=== PATIENT | female | born 1985 | race Caucasian/White ===

== ENCOUNTER 2020-10-25 10:04 | Emergency (ER) | payer OTHER, SELFPAY ==
--- NOTE | ~2020-10-25 | XR_ITS ---
EXAMINATION: XR HIP, RIGHT CLINICAL INFORMATION: Right hip pain COMPARISON: None TECHNIQUE: Two views of the right hip. FINDINGS: No fracture, dislocation, destructive process. Bony mineralization appears normal. No periostitis. No joint narrowing or erosive change. IUD is seen overlying central pelvis. Visualized pubis and right SI joint are unremarkable. XR/XR hip RT min 2V IMPRESSION: Normal right hip.
[2020-10-25 10:21] VITALS: BP 223/123; PULSE 106; RESP 18; TEMP 37.1; O2SAT 97; BMI 34.0
[2020-10-25 10:56] VITALS: BP 202/121; BP 229/118; PULSE 107; RESP 20; O2SAT 99
--- NOTE | 2020-10-25 10:59 | PC.NURSE ---
pt alert and oriented, skin pwd, respirations even and unlabored. pt ambulated in to the ed. pt reports on mother's day pt injured her right leg, since then having lots of pain on her right outer foot and most pain in the right outer thigh area, having difficulty with ambulation due to pain and sitting, reports feeling like her leg/muscle is being pulled. pt is found to very hypertensive with no hx of hypertension, denies dizziness/lightheadedness/vision changes/headache.
--- NOTE | 2020-10-25 11:45 | ED.LOWEXIN ---
HPI - Extremity Injury (Lower) General Chief Complaint: Extremity Injury, Lower Stated Complaint: leg pain Time Seen by Provider: 10/25/20 11:23 Source: patient Mode of arrival: ambulatory Limitations: no limitations History of Present Illness HPI Narrative: 35 yo female otherwise healthy patient here with R hip pain and thigh pain after working on a fence and feeling in a tear in R IT band feeling, has not had it checked out at times now feels her R side of the foot is tingling complaint: hip injury and thigh injury Onset (ago): week(s) (September 24) Injury: Right: hip and thigh Place: home Severity: moderate Relieving factors: nothing Exacerbating factors: movement and palpation Context: other (unsure) Associated symptoms: snap/pop sensation and tingling Other symptoms: none Related Data Previous Rx's Medication Instructions Recorded cyclobenzaprine 10 mg PO TID PRN #14 tab 10/25/20 ibuprofen 600 mg PO Q6H PRN #30 tab 10/25/20 lidocaine 1 patch TOPICAL DAILY PRN #10 ea 10/25/20 prednisone 40 mg PO DAILY 3 Days #6 tab 10/25/20 Allergies Allergy/AdvReac Type Severity Reaction Status Date / Time oxycodone [From PERCOCET] Allergy Unknown HIVES Unverified 02/03/20 18:28 SWELLING Review of Systems Review of Systems: Constitutional : No Fever, No Chills ENT/Mouth : No Ear Pain, No Hoarseness, No sore throat Cardiovascular : No Chest Pain, No SOB Respiratory : No Cough, No Dyspnea Gastrointestinal : No Nausea, No Vomiting Genitourinary : No Dysuria, No Hematuria Musculoskeletal : positive joint pain, pos Myalgias Skin : No Skin lacerations, No rash Neuro : No Weakness, No Numbness Psych : No Anxiety/Panic, No Depression PMFSH Past Medical History Attestation statement: The following information was validated with the patient. Medical History No active medical problems Social History Social History Patient Tobacco Use Status: Current everyday Tobacco user Use of substances other than those prescribed or required for medical reasons: No Advance Directives: No Advance Directives Information Provided: Yes Patient : No Physical Exam Vital Signs: Vital Signs: Last Vital Signs Temp 98.7 F 10/25/20 10:21 Pulse 107 H 10/25/20 10:56 Resp 20 10/25/20 10:56 BP 202/121 H 10/25/20 10:56 Pulse Ox 99 10/25/20 10:56 Body Mass Index 34.0 Appearance: Alert. Oriented X3. No acute distress. Eyes: Pupils equal, round and reactive to light. ENT: Pharynx normal. Neck: Normal inspection. Neck supple. CVS: Normal heart rate and rhythm. Pulses normal. Respiratory: No respiratory distress. Breath sounds normal. Abdomen: Soft and nontender. Skin: Skin warm and dry. Normal skin color. Normal skin turgor. Extremities: No lower extremity edema. No calf ttp R thigh ttp along IT band, distal NV intact, 2+ DP pulse, pain with ROM of R hip Neuro: Oriented X 3. No motor deficit. No sensory deficit. MDM - Extremity Injury (Lower) MDM Narrative Medical decision making narrative: 35 yo female here with R hip and thigh strain after trauma at this time will need xray of hip for any signs of occult fracture she is NV intact could be IT band tear vs impingement syndrome if xrays negative will refer to PCP for PT/MRI, HTN in ED states this happens when she has gone to doctor offices in the past Discharge Plan Discharge Clinical Impression: Hip strain Patient Disposition: Home, Self-Care Instructions: Hip Sprain (ED) Additional Instructions: return to ED for any worsening symptoms or concerns FINDINGS: No fracture, dislocation, destructive process. Bony mineralization appears normal. No periostitis. No joint narrowing or erosive change. IUD is seen overlying central pelvis. Visualized pubis and right SI joint are unremarkable. XR/XR hip RT min 2V IMPRESSION: Normal right hip. Prescriptions: New cyclobenzaprine 10 mg tablet 10 mg PO TID PRN (Reason: muscle spasm) Qty: 14 RF: 0 lidocaine 4 % adhesive patch,medicated 1 patch topical DAILY PRN (Reason: pain) Qty: 10 RF: 0 ibuprofen 600 mg tablet 600 mg PO Q6H PRN (Reason: pain) Qty: 30 RF: 0 prednisone 20 mg tablet 40 mg PO DAILY 3 Days Qty: 6 RF: 0 Referrals: Junito Mitchell DO, MD [Primary Care Provider] - 2 days (referral to physical therapy) Stand Alone Forms: Work/School Release
[2020-10-25 12:16] VITALS: BP 205/115; PULSE 97; RESP 19; TEMP 36.6; O2SAT 98
[2020-10-25 13:02] VITALS: BP 189/107
== END 2020-10-25 13:03 | disposition home or self-care (01) ==
PROVIDERS: Emergency Provider Emergency Medicine; PCP Internal Medicine
DX: S76.011A Strain of muscle, fascia and tendon of right hip, initial encounter (principal); X50.1XXA Overexertion from prolonged static or awkward postures, initial encounter; Y93.H3 Activity, building and construction; Y92.017 Garden or yard in single-family (private) house as the place of occurrence of the external cause; Y99.9 Unspecified external cause status; F17.210 Nicotine dependence, cigarettes, uncomplicated
CPT/HCPCS: 73502; 99283; 99284

== ENCOUNTER → 2021-01-30 08:36 | Outpatient (BNVA) | payer OTHER, SELFPAY | PROVIDERS: Visit Provider Advanced Practice Midwife ==

== ENCOUNTER → 2021-08-23 08:33 | Outpatient (BNVA) | payer OTHER, SELFPAY | PROVIDERS: Visit Provider Advanced Practice Midwife | DX: Z13.89 Encounter for screening for other disorder (principal) ==

== ENCOUNTER 2021-08-27 13:59 | Outpatient (REF) | payer OTHER, SELFPAY ==
[2021-08-28 05:54] LABS: CT PCR NOT DETECTED (Not Detect.); NG PCR NOT DETECTED (Not Detect.)
[2021-08-28 15:28] LABS: BV Int Neg Control Negative (Negative); BV Int Pos Control Positive (Positive)
[2021-08-29 19:21] LABS: HPV mRNA E6/E7 rflx Not Detected (Not Detected)
== END 2021-08-27 14:00 | disposition home or self-care (01) ==
LOC: HO.LAB 13:59
PROVIDERS: Visit Provider Advanced Practice Midwife
DX: Z01.411 Encounter for gynecological examination (general) (routine) with abnormal findings (principal); Z11.51 Encounter for screening for human papillomavirus (HPV); T83.32XA Displacement of intrauterine contraceptive device, initial encounter
CPT/HCPCS: 87480; 87491; 87510; 87591; 87624; 87660; 88142

== ENCOUNTER 2021-09-14 12:57 | Outpatient (REF) | payer OTHER, SELFPAY ==
--- NOTE | ~2021-09-14 | US_ITS ---
EXAMINATION: US PELVIS CLINICAL INFORMATION: Check IUD. Mesenteric stranding. COMPARISON: 02/03/2018 TECHNIQUE: Ultrasound of the pelvis is performed using both transabdominal and transvaginal transducers along with Doppler. Transvaginal imaging is performed due to inadequate visualization transabdominally. FINDINGS: Uterus: The uterus is anteverted and measures 9.3 x 5.6 x 6.3 cm. Endometrial signature not seen. IUD present within the endometrial canal, and while somewhat difficult to see due to the uterine position, appears to be appropriately positioned. The uterus is smooth in contour and has normal myometrial echogenicity. There are 2 uterine fibroids, one on this measuring up to 1.8 cm. Poorly delineated possibly uterine fibroid within the anterior uterine corpus measuring up to 3.5 cm. Adnexa: Both ovaries are visualized. There is normal color flow to the adnexa. There is no ovarian torsion. There is no pelvic ascites or fluid collection. Right ovary is splayed around a simple cyst. The cyst measures 5.2 x 4.9 x 4.5 cm there are no suspicious features. Left ovary measures 2.9 x 1.7 x 4.5 cm. US/US pelvic and transvaginal IMPRESSION: * IUD appears appropriately positioned within the endometrial cavity. * Uterine fundal fibroid measuring 1.8 cm. * Possible fibroid within the anterior uterus measuring 3.5 cm.
== END 2021-09-14 12:58 | disposition home or self-care (01) ==
LOC: HO.HMGCX 12:57
PROVIDERS: Visit Provider Advanced Practice Midwife
DX: Z01.419 Encounter for gynecological examination (general) (routine) without abnormal findings (principal); T83.32XA Displacement of intrauterine contraceptive device, initial encounter; Z20.2 Contact with and (suspected) exposure to infections with a predominantly sexual mode of transmission; Z53.8 Procedure and treatment not carried out for other reasons
CPT/HCPCS: 76830; 76856

== ENCOUNTER 2021-09-24 10:16 | Outpatient (REF) | payer OTHER, SELFPAY ==
[2021-09-24 12:28] LABS: Hemoglobin 13.2 g/dl (12.0-16.0); Mean Corpuscular Hemoglobin 29.2 pg (27.0-33.0); Mean Corpuscular Volume 88.5 fL (80.0-98.0); Mean Platelet Volume 10.7 fL (9.4-12.3); Platelet Count 237 X10*3/uL (160-400); Red Blood Count 4.52 X10*6/uL (4.20-5.50); Red Cell Distribution Width 12.3 % (11.0-16.0); White Blood Count 6.9 X10*3/uL (4.8-10.8)
[2021-09-24 13:24] LABS: HCG Quantitative < 2 mIU/mL; TSH reflex Free T4 1.11 uIU/mL (0.32-4.0)
== END 2021-09-24 10:17 | disposition home or self-care (01) ==
LOC: HO.LAB 10:16
PROVIDERS: PCP Internal Medicine; Visit Provider Obstetrics & Gynecology
DX: Z30.433 Encounter for removal and reinsertion of intrauterine contraceptive device (principal); N93.9 Abnormal uterine and vaginal bleeding, unspecified; D21.9 Benign neoplasm of connective and other soft tissue, unspecified; R87.610 Atypical squamous cells of undetermined significance on cytologic smear of cervix (ASC-US)
CPT/HCPCS: 36415; 58100; 58301; 81025; 84443; 84702; 85027; 88305

== ENCOUNTER → 2021-10-23 10:15 | Outpatient (BNVA) | payer OTHER, SELFPAY | PROVIDERS: PCP Internal Medicine; Visit Provider Obstetrics & Gynecology | DX: D25.9 Leiomyoma of uterus, unspecified (principal); N93.9 Abnormal uterine and vaginal bleeding, unspecified; R87.610 Atypical squamous cells of undetermined significance on cytologic smear of cervix (ASC-US); Z30.431 Encounter for routine checking of intrauterine contraceptive device ==

== ENCOUNTER 2022-06-07 14:55 | Outpatient (REF) | payer OTHER, SELFPAY ==
--- NOTE | ~2022-06-07 | US_ITS ---
EXAMINATION: US PELVIS CLINICAL INFORMATION: Benign neoplasm of connective tissue. Uterine myoma. Check IUD. COMPARISON: Pelvic ultrasound from 09/14/2021 TECHNIQUE: Ultrasound of the pelvis is performed using both transabdominal and transvaginal transducers along with Doppler. Transvaginal imaging is performed due to inadequate visualization transabdominally. FINDINGS: UTERUS AND CERVIX The anteflexed, anteverted uterus measures approximately 7.8 x 5 x 6 cm ([id number] x AP x transverse dimension). The cervix is approximately 2.5 cm in length. The myometrial echotexture is slightly heterogeneous. There appears to be a 1.6 cm hypoechoic structure of the uterine fundus, likely intramural leiomyoma and unchanged compared to 09/14/2021. There is a questionable finding of an isoechoic intramural leiomyoma of the anterior uterine body of approximately 2.5 cm size. Also, prior ultrasound images of 09/14/2021 show questionable finding of a leiomyoma in the anterior uterine body. The endometrium measures up to 0.5 - 0.6 cm in thickness. The contraceptive device appears to be positioned in the lower uterine segment with its distal tip near the internal cervical os. ADNEXA: The right ovary is 3.1 x 2.8 x 3 cm and left ovary 4 x 2.7 x 3.3 cm. The dominant follicle within the right ovary is 1.6 cm. The dominant follicle within left ovary is 2.5 cm. No adnexal masses. FREE FLUID: None detected. US/US pelvic and transvaginal IMPRESSION: * The contraceptive device is positioned in the lower aspect of the endometrium. The tip of the IUD appears to be at the level of the internal cervical os. * 1.6 cm leiomyoma of the uterine fundus is unchanged. * There is a questionable isoechoic intramural leiomyoma in the anterior uterine body. * No evidence of ovarian mass or pelvic free fluid.
== END 2022-06-07 14:56 | disposition home or self-care (01) ==
LOC: HO.HMGCX 14:55
PROVIDERS: Visit Provider Obstetrics & Gynecology
DX: D21.9 Benign neoplasm of connective and other soft tissue, unspecified (principal)
CPT/HCPCS: 76830; 76856

== ENCOUNTER → 2022-06-13 07:53 | Outpatient (BNVA) | payer OTHER, SELFPAY | PROVIDERS: PCP Internal Medicine; Visit Provider Obstetrics & Gynecology | DX: Z13.89 Encounter for screening for other disorder (principal) ==

== ENCOUNTER → 2022-06-17 14:43 | Outpatient (BNVA) | payer OTHER, SELFPAY | PROVIDERS: PCP Internal Medicine; Visit Provider Obstetrics & Gynecology | DX: Z13.89 Encounter for screening for other disorder (principal) ==

== ENCOUNTER 2022-07-23 08:02 | Outpatient (REF) | payer OTHER, SELFPAY ==
[2022-07-23 15:29] LABS: CT PCR NOT DETECTED (Not Detect.); NG PCR NOT DETECTED (Not Detect.)
== END 2022-07-23 08:03 | disposition home or self-care (01) ==
LOC: HO.LNP 08:02
PROVIDERS: PCP Internal Medicine; Visit Provider Obstetrics & Gynecology
DX: Z30.433 Encounter for removal and reinsertion of intrauterine contraceptive device (principal); Z20.2 Contact with and (suspected) exposure to infections with a predominantly sexual mode of transmission
CPT/HCPCS: 0353U; 58300; 58301; J7298

== ENCOUNTER 2022-09-09 08:32 | Outpatient (REF) | payer OTHER, SELFPAY ==
--- NOTE | ~2022-09-09 | US_ITS ---
EXAMINATION: US RETROPERITONEAL LIMITED (RENAL ONLY) CLINICAL INFORMATION: Hypertension. COMPARISON: None available. TECHNIQUE: Doppler color and grayscale evaluation of the kidneys. Color Doppler evaluation of the renal arteries including waveform spectral analysis was also. FINDINGS: RIGHT KIDNEY: 13.1 x 5.6 x 5.6 cm (SAG x AP x TRV). The kidney is normal in size, contour, and echogenicity. Renal cortical thickness is normal. There is a 8 x 6 x 8 mm stone No focal parenchymal lesions. No hydronephrosis. LEFT KIDNEY: 12.2 x 5 x 5.1 cm (SAG x AP x TRV). The kidney is normal in size, contour, and echogenicity. Renal cortical thickness is normal. No calculi or focal parenchymal lesions. No hydronephrosis. Peak systolic velocities in the mid abdominal aorta is elevated measuring 137 cm/s. This precludes calculation of renal artery to aorta ratio. The right renal artery is patent. Right renal artery peak systolic velocities are slightly increased and measure 172 cm/s proximally, 207 cm/s the midportion and 175 m/s distally. Resistive indices of the segmental renal arteries in the right kidney are normal measuring 0.6. The right vein is patent. The left renal artery is patent. Left renal artery systolic velocities are normal and measure 82 cm/s, 64 cm/s and 132 cm/s proximally, in the midportion and distally. Resistive indices of the segmental renal arteries in the left kidney are normal measuring 0.6. The left renal vein is patent. There are gallstones. US/US renal doppler IMPRESSION: Renal ultrasound: Right renal stone. Normal left kidney. Renal Doppler exam: Slightly increased peak systolic velocities in the right renal artery suggestive of less than 60% stenosis. No evidence of left renal artery stenosis. Gallstones.
--- NOTE | ~2022-09-09 | US_ITS ---
EXAMINATION: US RETROPERITONEAL LIMITED (RENAL ONLY) CLINICAL INFORMATION: Hypertension. COMPARISON: None available. TECHNIQUE: Doppler color and grayscale evaluation of the kidneys. Color Doppler evaluation of the renal arteries including waveform spectral analysis was also. FINDINGS: RIGHT KIDNEY: 13.1 x 5.6 x 5.6 cm (SAG x AP x TRV). The kidney is normal in size, contour, and echogenicity. Renal cortical thickness is normal. There is a 8 x 6 x 8 mm stone No focal parenchymal lesions. No hydronephrosis. LEFT KIDNEY: 12.2 x 5 x 5.1 cm (SAG x AP x TRV). The kidney is normal in size, contour, and echogenicity. Renal cortical thickness is normal. No calculi or focal parenchymal lesions. No hydronephrosis. Peak systolic velocities in the mid abdominal aorta is elevated measuring 137 cm/s. This precludes calculation of renal artery to aorta ratio. The right renal artery is patent. Right renal artery peak systolic velocities are slightly increased and measure 172 cm/s proximally, 207 cm/s the midportion and 175 m/s distally. Resistive indices of the segmental renal arteries in the right kidney are normal measuring 0.6. The right vein is patent. The left renal artery is patent. Left renal artery systolic velocities are normal and measure 82 cm/s, 64 cm/s and 132 cm/s proximally, in the midportion and distally. Resistive indices of the segmental renal arteries in the left kidney are normal measuring 0.6. The left renal vein is patent. There are gallstones. US/US renal BI IMPRESSION: Renal ultrasound: Right renal stone. Normal left kidney. Renal Doppler exam: Slightly increased peak systolic velocities in the right renal artery suggestive of less than 60% stenosis. No evidence of left renal artery stenosis. Gallstones.
== END 2022-09-09 08:33 | disposition home or self-care (01) ==
LOC: HO.HMGCX 08:32
PROVIDERS: PCP Internal Medicine; Visit Provider Internal Medicine
DX: I10 Essential (primary) hypertension (principal)
CPT/HCPCS: 76775; 93975

== ENCOUNTER 2022-12-10 09:05 | Outpatient (REF) | payer OTHER, SELFPAY ==
[2022-12-11 14:54] LABS: BV Int Neg Control Negative (Negative); BV Int Pos Control Positive (Positive)
[2022-12-19 08:43] LABS: HPV 16 RNA NOT DETECTED (NOT DETECTED); HPV mRNA E6/E7 rflx Detected (Not Detected)
== END 2022-12-10 09:06 | disposition home or self-care (01) ==
LOC: HO.LNP 09:05
PROVIDERS: PCP Internal Medicine; Visit Provider Obstetrics & Gynecology
DX: Z01.419 Encounter for gynecological examination (general) (routine) without abnormal findings (principal); Z11.51 Encounter for screening for human papillomavirus (HPV); N76.0 Acute vaginitis
CPT/HCPCS: 87480; 87510; 87624; 87625; 87660; 88142

== ENCOUNTER 2022-12-10 09:05 | Outpatient (AMB) | payer OTHER, SELFPAY ==
--- NOTE | 2022-12-10 09:07 | A.OFFVIS_ITS ---
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 Complaining or vulvovaginal itching with no associated discharge, no foul odor Last Pap/HPV was ascus/HPV negative in 09/07, last Pap smear was in 2015 within normal [facility] Medical History (Updated 12/10/22 @ 09:27 by Errol Darby MD) HTN (hypertension) Surgical History (Updated 12/10/22 @ 09:13 by Mariah Pinto CMA) Hx of section Hx of foot surgery Family History (Updated 12/10/22 @ 09:14 by Mariah Pinto CMA) Mother HTN (hypertension) Diabetes Social History (Updated 12/10/22 @ 09:15 by Mariah Pinto CMA) Household Members: Children Household Members Other:: mom Housing: House Alcohol intake: never Patient Tobacco Use Status: Former Tobacco user Years Smoked: 16 service: No Current occupational status: employed 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 Sexually active: No Sexual orientation: Straight/Heterosexual Gender identity: Female Female Reproductive History Menstrual Age of Menarche: 12 control method: progestin IUCD Total pregnancies: 3 Full term: 2 Number of Living Children: 2 Ab spontaneous: 1 Date of last pap smear: 08/28/21 Review of Systems Const All systems reviewed & are unremarkable except as noted in HPI and below Card Reports as per HPI Resp Reports as per HPI GI Reports as per HPI and Reports no additional complaints Reports as per HPI Physical Exam Vital Signs: Last Vital Signs BP 132/80 12/10/22 09:11 BMI result Body Mass Index 31.6 Const General: cooperative, healthy appearing and comfortable Chest Chest palpation & inspection: normal inspection of the chest and normal palpation of entire chest wall Breast/axilla inspection: normal inspection of the breasts and normal inspection of the axillae Breast/axilla palpation: normal palpation of the breasts, normal palpation of the axillae and no axillary lymphadenopathy Resp Effort & Inspection: normal respiratory effort Auscultation: clear to auscultation bilaterally Percussion: percussion normal Cardio Palpation: normal PMI Rate: regular rate Rhythm: regular rhythm Heart sounds: no murmurs and no rubs Peripheral pulses: Peripheral pulses 2+ throughout GI Inspection: Yes normal to inspection Palpation (GI): Soft to palpation, nontender, no guarding, not rigid and No hepatosplenomegaly present Percussion: Yes normal to percussion Auscultation: normal bowel sounds Rectal Exam - Female: deferred General: Yes bladder normal to palpation External Female Exam: No lesion Speculum Exam - Vagina: normal appearance of the vagina, normal palpation, normal vaginal discharge and not erythematous Speculum Exam - Cervix: normal appearance of the cervix and normal palpation Bimanual exam- vagina & uterus: normal bimanual exam, normal palpation, uterine size normal, bladder normal to palpation, consistency normal and normal palpation Bimanual Exam- Adnexa, other: normal adnexae, no masses and no tenderness Assessment & Plan Assessment & Plan (1) Well woman exam: Code(s): Z01.419 - Encounter for gynecological examination (general) (routine) without abnormal findings Plan: Cotesting done since last Pap smear was ascus/HPV negative in 2021 and preceded by normal co testing in 2015. Counseled the patient about the recommended dietary allowance of 1000 mg of Calcium & 600 IU of vitamin D. The patient was instructed to perform monthly self-breast exams and to schedule an annual exam in a year; All questions answered and the patient verbalized understanding. Instructed the patient to schedule annual exam in a year (2) Vulvovaginitis: Code(s): N76.0 - Acute vaginitis Plan: Bacterial Vaginosis panel taken, Diflucan 150 mg x 1 was sent to the patient's pharmacy. The patient was instructed to call if symptoms don't improve in 48 hours. Medications: New fluconazole (Diflucan) 150 mg PO ONCE 1 tab 0RF 1 day Coding Level of Care Code Est Pt Prev Care 18-39y(91511) Diagnoses Well woman exam Z01.419 Vulvovaginitis N76.0
[2022-12-10 09:11] VITALS: BP 132/80; BMI 31.6
== END 2022-12-10 09:35 | disposition home or self-care (01) ==
LOC: HO.HWS 09:05
PROVIDERS: PCP Internal Medicine; Visit Provider Obstetrics & Gynecology
DX: Z01.419 Encounter for gynecological examination (general) (routine) without abnormal findings (principal); N76.0 Acute vaginitis
CPT/HCPCS: 99395

== ENCOUNTER 2023-02-10 08:42 | Outpatient (AMB) | payer OTHER, SELFPAY ==
[2023-02-10 09:05] VITALS: BP 160/86; BMI 35.6
--- NOTE | 2023-02-10 09:05 | MHC.OFFVIS ---
Intake Vital Signs 02/10/23 09:05 Height 5 ft 3 in Weight 201 lb BMI 35.6 BP 160/86 H Intake Visit Reasons: Colposcopy Silverware Buffer Required: No Information Interpreted: non-clinical & clinical Air Control Electronics Operator: Air Control Electronics Operator Present (Mariah) Allergies oxycodone [From PERCOCET] Allergy (Unknown, Verified 02/10/23 09:06) HIVES SWELLING Is last menstrual period known: Yes Last menstrual period: 02/03/23 Post menopausal: No PFSH Medical History HTN (hypertension) Surgical History Hx of foot surgery Hx of section Family History Mother HTN (hypertension) Diabetes Social History Household Members: Children Household Members Other:: mom Housing: House Alcohol intake: never Patient Tobacco Use Status: Former Tobacco user Years Smoked: 16 service: No Current occupational status: employed 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 Gender identity: Female Female Reproductive History Menstrual Age of Menarche: 12 Date of last menstrual period: 02/03/23 Date of last pap smear: 12/12/22 (ASCUS +HPV) History of abnormal pap smear: Yes Physical Exam Vital Signs: Last Vital Signs BP 160/86 H 02/10/23 09:05 BMI result Body Mass Index 35.6 Office Procedures Colposcopy Before the procedure was started discussed with the patient the procedure, alternatives & all the risks associated with the procedure (bleeding, infection, injury to vagina, bladder, vessels, possible need for transfusion with all its risks) then patient signed the consent UPT done in the office & negative Pap smear = ascus/HPV positive Speculum inserted, acetic acid used Colposcopy done Transformation zone seen, no acetowhite lesions was identified, no cervical biopsies taken f, ECC done afterwards. Vaginoscopy of the upper vagina showed no evidence of any aceto-white lesions Monsel solution used for hemostasis. The patient tolerated well . At the end the patient was instructed to call if temp>100.4, abdominal pain, n/v, bleeding; The patient was given the following instructions: nothing per vagina, no intercourse or bath tub use. All questions answered the patient verbalized understanding. Instructed the patient to make an appointment in 2 weeks for follow-up This note was generated with a voice recognition program. Some errors may have been overlooked during the review of this note. Sometimes these errors may affect the content or meaning of a given sentence. [id number] of cervix including upper vagina with ECC Procedure code (CPT) selection complete Results AMB Test Urine AMB Test Urine Negative Last Edit by SAMANTHA Singh on 02/10/23 09:08 Results Reviewed Results Reviewed: Laboratory Last Values Tst Clinic Negative 02/10/23 09:07 Assessment & Plan Assessment & Plan Orders: Orders AMB HCG Urine Test Today Z32.02 - Encounter for test, result negative AMB Colposcopy Today R87.610 - Atypical squamous cells of undetermined significance on cytologic smear of cervix (ASC-US), R87.810 - Cervical high risk human papillomavirus (HPV) DNA test positive Coding Level of Care Code Procedure Only CPT Codes Colposcopy - CPT: 50229-Vbifnyvpcf of cervix including upper vagina with ECC ([id number])
== END 2023-02-10 09:23 | disposition home or self-care (01) ==
PROVIDERS: PCP Internal Medicine; Visit Provider Obstetrics & Gynecology
DX: R87.610 Atypical squamous cells of undetermined significance on cytologic smear of cervix (ASC-US) (principal); R87.810 Cervical high risk human papillomavirus (HPV) DNA test positive; Z32.02 Encounter for pregnancy test, result negative
CPT/HCPCS: 57456

== ENCOUNTER 2023-02-10 08:42 | Outpatient (REF) | payer OTHER, SELFPAY | END 2023-02-10 08:43 | disposition home or self-care (01) | LOC: HO.LNP 08:42 | PROVIDERS: PCP Internal Medicine; Visit Provider Obstetrics & Gynecology | DX: R87.610 Atypical squamous cells of undetermined significance on cytologic smear of cervix (ASC-US) (principal); R87.810 Cervical high risk human papillomavirus (HPV) DNA test positive; I10 Essential (primary) hypertension; Z32.02 Encounter for pregnancy test, result negative | CPT/HCPCS: 57456; 81025; 88305 ==

== ENCOUNTER 2023-04-29 07:46 | Outpatient (AMB) | payer OTHER, SELFPAY ==
[2023-04-29 08:13] VITALS: BP 144/80; BMI 35.5
--- NOTE | 2023-04-29 08:13 | MHC.OFFVIS ---
Intake Vital Signs 04/29/23 08:13 Height 5 ft 3 in Weight 200 lb 9.93 oz BMI 35.5 BP 144/80 H Intake Visit Reasons: colpo results/ok per linnea Net Mender Required: No Information Interpreted: non-clinical & clinical Accompanied by: Self / Same As Patient Allergies oxycodone [From PERCOCET] Allergy (Unknown, Verified 04/29/23 08:14) HIVES SWELLING Is last menstrual period known: No HPI HPI Comments History of Present Illness Details Presenting post colpo for follow-up. The patient is doing well with no complaints. The pathology showed the following: Endocervix, curettage: Fragments of acutely inflamed squamous mucosa with reactive epithelial changes and benign endocervical glands; negative for squamous intraepithelial lesion. COMMENT: The atypical cells noted on the patient's previous Pap smear ([id number]; ASCUS; HPV+) may be represented by the reactive changes seen above. 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 Gender identity: Female Female Reproductive History Menstrual Age of Menarche: 12 control method: progestin IUCD Review of Systems Const All systems reviewed & are unremarkable except as noted in HPI and below Reports as per HPI and Reports no additional complaints GI Reports no additional complaints Reports no additional complaints Assessment & Plan Assessment & Plan (1) ASCUS with positive high risk HPV cervical: Code(s): R87.610 - Atypical squamous cells of undetermined significance on cytologic smear of cervix (ASC-US); R87.810 - Cervical high risk human papillomavirus (HPV) DNA test positive Plan: Discussed with the patient the pathology results of the colposcopy biopsies & endocervical curettage (negative). Discussed with the patient the sensitivity specificity, positive and negative predictive value in detecting cervical cancer in addition discussed the regression, persistence and progression rates. Recommended co-testing in 12 months, if cytology and or HPV are abnormal will proceed was colposcopy biopsy and endocervical curettage. Instructions given to the patient to schedule a co test appointment in 1 year. All questions answered the patient verbalized understanding. Coding Level of Care Code Est Pt Level 3 (03866) Diagnoses ASCUS with positive high risk HPV cervical R87.610; R87.810
== END 2023-04-29 11:08 | disposition home or self-care (01) ==
PROVIDERS: PCP Internal Medicine; Visit Provider Obstetrics & Gynecology
DX: R87.610 Atypical squamous cells of undetermined significance on cytologic smear of cervix (ASC-US) (principal); R87.810 Cervical high risk human papillomavirus (HPV) DNA test positive
CPT/HCPCS: 99213

== ENCOUNTER → 2023-04-29 07:46 | Outpatient (BNVA) | payer OTHER, SELFPAY | PROVIDERS: PCP Internal Medicine; Visit Provider Obstetrics & Gynecology ==

== ENCOUNTER 2024-06-25 07:24 | Outpatient (REF) | payer OTHER, SELFPAY ==
--- OUTSIDE RECORDS SUMMARY | 2024-06-25 07:49 | XMS_ITS | Clinical Summary ---
Author Organization [facility] Address [address] [place] [address] Care Team Providers Care It Systems Engineer Name Role Phone Junito Mitchell DO Primary Care Provider [phone] Social History Tobacco Use Types Packs/Day Years Used Date Smoking Tobacco: Never Assessed Sex and Gender Information Value Date Recorded Sex Assigned at Not on file Gender Identity Not on file Sexual Orientation Not on file Plan of Treatment Upcoming Encounters Date Type Department Care Team (Late st Contact Info) Description 09/30/2024 9:30 AM EDT Office Visit Bariatric Surgery [facility] [address] [facility] [address] [phone] Dorothea Rodriugez PA [address] [facility] [address] [place] [address] Health Maintenance Due Date Last Done Comments DTaP,Tdap,and Td Vaccines (1 - Tdap) 2004 Hepatitis B Vaccines (1 of 3 - 19+ 3-dose series) 2004 Cervical Cancer Screening: P ap Smear 2006 Depression Screening 04/21/2022 HIV Screening 04/21/2022 Hepatitis C Screening 04/21/2022 Social Influencers of Health Screening 04/21/2022 COVID-19 Vaccine ( - 2023-2 5 season) 2024 Influenza Vaccine (#1) 2024 HIB Vaccines Aged Out No longer eligi ble based on patient's age to complete this topic HPV Vaccines Aged Out No longer eligi ble based on patient's age to complete this topic Hepatitis A Vaccines Aged Out No long er eligible based on patient's age to complete this topic IPV Vaccines Aged Out No longer eligi ble based on patient's age to complete this topic MMR Vaccines Aged Out No longer eligi ble based on patient's age to complete this topic Meningococcal ACWY Vaccine Aged Out N o longer eligible based on patient's age to complete this topic Pneumococcal Vaccine: Pediat rics (0 to 5 Years) and At-Risk Patients (6 to 64 Years) Aged Out No longer eligible b ased on patient's age to complete this topic RSV Immunization Patients Un belinda 20 months Aged Out No longer eligible b ased on patient's age to complete this topic Varicella Vaccines Aged Out No longer eligible based on patient's age to complete this topic Care Teams It Systems Engineer Relationship Specialty Start Date End Date Junito Mitchell DO [address] [place] [phone] PCP - General Internal Medicine 05/03/24
[2024-07-05 09:12] LABS: HPV Genotype 16 Negative (Negative); HPV Genotype 18 Negative (Negative); HPV High Risk Negative (Negative)
== END 2024-06-25 07:25 | disposition home or self-care (01) ==
LOC: HO.LNP 07:24
PROVIDERS: PCP Internal Medicine; Visit Provider Obstetrics & Gynecology
DX: Z01.419 Encounter for gynecological examination (general) (routine) without abnormal findings (principal); R87.610 Atypical squamous cells of undetermined significance on cytologic smear of cervix (ASC-US); R87.810 Cervical high risk human papillomavirus (HPV) DNA test positive; Z97.5 Presence of (intrauterine) contraceptive device
CPT/HCPCS: 87626; 88175; 99395; 99459

== ENCOUNTER → 2024-06-25 07:24 | Outpatient (AMB) | payer OTHER, SELFPAY ==
--- NOTE | 2024-06-25 07:33 | A.OFFVIS_ITS ---
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 No complaints. 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[employer] Sexual orientation: Straight/Heterosexual Gender identity: Female Female Reproductive History Menstrual Age of Menarche: 12 control method: progestin IUCD Date of last pap smear: 12/12/22 History of abnormal pap smear: Yes (HPV) Review of Systems Const All systems reviewed & are unremarkable except as noted in HPI and below Card Reports as per HPI Resp Reports as per HPI GI Reports as per HPI and Reports no additional complaints Reports as per HPI Physical Exam Const General: cooperative, healthy appearing and comfortable Chest Chest palpation & inspection: normal inspection of the chest and normal palpation of entire chest wall Breast/axilla inspection: normal inspection of the breasts and normal inspection of the axillae Breast/axilla palpation: normal palpation of the breasts, normal palpation of the axillae and no axillary lymphadenopathy Resp Effort & Inspection: normal respiratory effort Auscultation: clear to auscultation bilaterally Percussion: percussion normal Cardio Palpation: normal PMI Rate: regular rate Rhythm: regular rhythm Heart sounds: no murmurs and no rubs Peripheral pulses: Peripheral pulses 2+ throughout GI Inspection: Yes normal to inspection Palpation (GI): Soft to palpation, nontender, no guarding, not rigid and No hepatosplenomegaly present Percussion: Yes normal to percussion Auscultation: normal bowel sounds Rectal Exam - Female: deferred General: Yes bladder normal to palpation External Female Exam: No lesion Speculum Exam - Vagina: normal appearance of the vagina, normal palpation, normal vaginal discharge and not erythematous Speculum Exam - Cervix: normal appearance of the cervix and normal palpation Bimanual exam- vagina & uterus: normal bimanual exam, normal palpation, uterine size normal, bladder normal to palpation, consistency normal and normal palpation Bimanual Exam- Adnexa, other: normal adnexae, no masses and no tenderness Assessment & Plan Assessment & Plan (1) Well woman exam with routine gynecological exam: Code(s): Z01.419 - Encounter for gynecological examination (general) (routine) without abnormal findings Category: Medical Plan: Cotesting done. Mammogram ordered for 03/12 at age of 40. Counseled the patient about the recommended dietary allowance of 1000 mg of Calcium & 600 IU of vitamin D. The patient was instructed to perform monthly self-breast exams and to schedule an annual exam in a year; All questions answered and the patient verbalized understanding. Instructed the patient to schedule annual exam in a year Orders: Orders MM tomosynthesis screening BI 8 Months Z12.31 - Encounter for screening mammogram for malignant neoplasm of breast Coding Level of Care Code Est Pt Prev Care 18-39y(12995) Diagnoses Well woman exam with routine gynecological exam Z01.419
== END | disposition home or self-care (01) ==
PROVIDERS: PCP Internal Medicine; Visit Provider Obstetrics & Gynecology
CPT/HCPCS: 99395; 99459

== ENCOUNTER 2024-09-08 15:14 | Outpatient (AMB) | payer OTHER, SELFPAY ==
--- NOTE | 2024-09-08 15:19 | A.OFFVIS_ITS ---
Intake Visit Reasons: kidney stones Intake Note: New patient presents today for initial visit for kidney stones Urology Medication:none Blood Thinner:none Antibiotic Allergies:none Allergies oxycodone [From PERCOCET] Allergy (Unknown, Verified 09/08/24 15:50) HIVES SWELLING Medication List - Last Reconciled 09/08/24 by LENO Avelar- amlodipine 10 mg PO DAILY cyclobenzaprine 10 mg PO TID PRN levonorgestrel (Mirena) intrauterine losartan 50 mg PO DAILY HPI Comments Details: Jazmyne is a very pleasant 39-year-old female patient of Dr. Mitchell. She has a past medical history of gallstones and hypertension. She presents to the office today as a new patient for nephrolithiasis. In discussion with the patient today she reports a longstanding history of nephrolithiasis over the last 5 years however never followed up with a employment specialist as she believed pain she had been experiencing was related to her history of gallstones. When asked she currently denies any bothersome urinary issues. She denies urinary urgency, urinary frequency, incontinence, nocturia, hematuria, dysuria, foul smelling urine, changes to urinary stream, flank pain, fever, and or chills. She is happy with her current voiding parameters. Unable to obtain urine for urinalysis as patient unable to void. In review of patient's chart it appears most recent ultrasound from 2022 that notes bilateral kidneys are normal in size, contour, and echogenicity. No hydronephrosis noted bilaterally. Right nonobstructing 8 mm stone. We discussed obtaining more recent imaging for further assessment evaluation. We discussed importance of adequate hydration relation to nephrolithiasis as well as overall health and well-being. She denies ever having any surgical history for nephrolithiasis. Discussion Notes During the consultation, we discussed the patient's history of kidney stones, initially identified over 5 years ago, with the last 2022 imaging noting 8 mm nonobstructing right renal calculi however imaging from 2019 noted 1 cm nonobstructing right renal stone. The patient has not had surgical intervention for kidney stones. I explained the options for management, including the need for a current CT scan to evaluate the size and number of kidney stones. The potential treatment approaches discussed were extracorporeal shock wave lithotripsy verses ureteroscopy each with their respective risks and benefits. The importance of hydration was emphasized, recommending an increase in water intake to approximately 60-80 ounces daily. The patient consented to the plan to obtain a CT scan to determine the appropriate management strategy. Plan A CT scan will be conducted to evaluate the current status of the patient's kidney stones. Depending on the size and number of stones observed, treatment options include extracorporeal shock wave lithotripsy or ureteroscopy. The patient should increase water intake to approximately 60-80 ounces per day to reduce the risk of further stone formation. Consultation and further management for cholelithiasis are pending with a gastrointestinal specialist. Treatment decisions will be revisited after reviewing imaging results. The patient has consented to this plan and is aware of the potential risks and benefits associated with each treatment option. 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 Gender identity: Female Female Reproductive History Menstrual Age of Menarche: 12 Review of Systems Const All systems reviewed & are unremarkable except as noted in HPI and below Physical Exam Const General: cooperative, healthy appearing, comfortable, no acute distress, well developed, alert and awake Orientation/consciousness: patient oriented x3 Limitations: no limitations HEENT Head: Yes normal to inspection, Yes normocephalic and Yes atraumatic Ears: hearing grossly normal bilaterally Eyes General: appearance normal, both eyes and all related structures Neck Neck: Yes normal visual inspection and Yes trachea midline Chest Chest palpation & inspection: normal inspection of the chest Resp Effort & Inspection: normal respiratory effort and able to speak in complete sentences Cardio Rate: regular rate GI Inspection: Yes normal to inspection General: Yes no CVA tenderness Back/Spine/Pelvis Back: no CVA tenderness Skin General skin exam: no rashes or lesions noted Neuro General: patient oriented x3 Extrem General: Yes normal to inspection Psych Appearance: grossly normal and well kempt Mental Status: mental status grossly normal Speech and movement: Normal speech and movement present and Clear speech present Affect: normal affect Attitude: cooperative Thought process: Normal thought process present Thought content: Normal thought content present Insight: Fair insight present (Psych) Judgement: Fair judgement present (Psych) Results Reviewed Results Reviewed: Date of Service: 09/09/22 Procedure(s): US renal BI FINDINGS: RIGHT KIDNEY: 13.1 x 5.6 x 5.6 cm (SAG x AP x TRV). The kidney is normal in size, contour, and echogenicity. Renal cortical thickness is normal. There is a 8 x 6 x 8 mm stone No focal parenchymal lesions. No hydronephrosis. LEFT KIDNEY: 12.2 x 5 x 5.1 cm (SAG x AP x TRV). The kidney is normal in size, contour, and echogenicity. Renal cortical thickness is normal. No calculi or focal parenchymal lesions. No hydronephrosis. Peak systolic velocities in the mid abdominal aorta is elevated measuring 137 cm/s. This precludes calculation of renal artery to aorta ratio. The right renal artery is patent. Right renal artery peak systolic velocities are slightly increased and measure 172 cm/s proximally, 207 cm/s the midportion and 175 m/s distally. Resistive indices of the segmental renal arteries in the right kidney are normal measuring 0.6. The right vein is patent. The left renal artery is patent. Left renal artery systolic velocities are normal and measure 82 cm/s, 64 cm/s and 132 cm/s proximally, in the midportion and distally. Resistive indices of the segmental renal arteries in the left kidney are normal measuring 0.6. The left renal vein is patent. There are gallstones. IMPRESSION: Renal ultrasound: Right renal stone. Normal left kidney. Renal Doppler exam: Slightly increased peak systolic velocities in the right renal artery suggestive of less than 60% stenosis. No evidence of left renal artery stenosis. Gallstones. Assessment & Plan Assessment & Plan (1) Nephrolithiasis: Code(s): N20.0 - Calculus of kidney Category: Medical Plan Unable to obtain urine for urinalysis as patient unable to void. Previous abdominal ultrasound from 2022 results were reviewed with the patient today; as noted above. We discussed obtaining new imaging for further assessment evaluation. We discussed at length potential causes of nephrolithiasis as well as further treatment options and risks and benefits of these treatment options. She currently denies any bothersome urinary issues or concerns. She reports be happy with current voiding parameters. We discussed importance of adequate hydration relation to nephrolithiasis as well as overall health and well-being. We discussed adding 1 oz of lemon juice to water daily. Will obtain CT KUB Follow-up in 1-[address] KUB; or sooner with any issues, concerns, and or questions. Orders: Orders CT kidney stone Today N20.0 - Calculus of kidney Patient Instructions: The patient had an opportunity to ask questions regarding the treatment plan. All questions were answered. Physical exam, labs, and imaging were discussed and reviewed in detail. As well as risks, benefits, and discussion of treatment choices. No major barriers to understanding were identified. The patient expressed understanding and agreement with the above treatment plan. The patient was made aware they should contact our office by phone for worsening of their current condition, the appearance of new symptoms, or with any questions or concerns. Compliance is encouraged with any medications and follow up testing that is ordered. It is a privilege to be allowed the opportunity to participate in? your urological care.? Again, if you have any questions or concerns If you have any questions or concerns please do not hesitate to contact me. The office is [phone]. This note is constructed using voice recognition software. While every effort has been made to ensure accuracy cider press operator errors may have been included. Yours sincerely, ANA Avelar Coding Level of Care Code New Pt Level 3 (23500) Diagnoses Nephrolithiasis N20.0
--- OUTSIDE RECORDS SUMMARY | 2024-09-08 17:58 | XMS_ITS | Clinical Summary ---
Author Organization [facility] it Address [address] [place] [address] Care Team Providers Care Roofing Machine Tender Name Role Phone Junito Mitchell DO Primary Care Provider [phone] Social History Tobacco Use Types Packs/Day Years Used Date Smoking Tobacco: Never Assessed Comments Unknown Sex and Gender Information Value Date Recorded Sex Assigned at Not on file Legal Sex Female 8:08 AM EST Gender Identity Not on file Sexual Orientation Not on file Plan of Treatment Upcoming Encounters Date Type Department Care Team (Late st Contact Info) Description 09/30/2024 9:30 AM EDT Office Visit Bariatric Surgery [facility] [address] [place] [phone] Dorothea Rodriguez PA [address] [address] Health Maintenance Due Date Last Done Comments DTaP,Tdap,and Td Vaccines (1 - Tdap) 2004 Hepatitis B Vaccines (1 of 3 - 19+ 3-dose series) 2004 Cervical Cancer Screening: P ap Smear 2006 Depression Screening 04/21/2022 HIV Screening 04/21/2022 Hepatitis C Screening 04/21/2022 Social Influencers of Health Screening 04/21/2022 COVID-19 Vaccine ( - 2023-2 5 season) 2024 Influenza Vaccine (Season Ended) 2025 HIB Vaccines Aged Out No longer eligi [...] patient's age to complete this topic Meningococcal B Vaccine Aged Out No l onger eligible based on patient's age to complete [...] age to complete this topic Care Teams Roofing Machine Tender Relationship Specialty Start Date End Date Junito Mitchell DO [address] [place] [phone] PCP - General Internal Medicine 05/03/24
== END 2024-09-08 15:46 | disposition home or self-care (01) ==
LOC: HO.HUSH 15:14
PROVIDERS: PCP Internal Medicine; Visit Provider Nurse Practitioner Family
DX: N20.0 Calculus of kidney (principal)
CPT/HCPCS: 99203

== ENCOUNTER → 2024-09-08 15:14 | Outpatient (BNVA) | payer OTHER, SELFPAY | PROVIDERS: PCP Internal Medicine; Visit Provider Nurse Practitioner Family | DX: N20.0 Calculus of kidney (principal); I10 Essential (primary) hypertension; Z87.19 Personal history of other diseases of the digestive system | CPT/HCPCS: 99202 ==

== ENCOUNTER 2024-09-30 09:56 | Outpatient (AMB) | payer OTHER, SELFPAY ==
--- NOTE | 2024-09-30 10:04 | MHC.OFFVIS ---
Vital Signs 09/30/24 10:06 Height 5 ft 2 in Weight 193 lb BMI 35.3 Intake Visit Reasons: AUB with IUD Pipe Joints Supervisor Required: No Information Interpreted: non-clinical & clinical College Or University Faculty Member: College Or University Faculty Member Present (Mariah SINGH) Accompanied by: Self / Same As Patient Allergies oxycodone [From PERCOCET] Allergy (Unknown, Verified 09/30/24 10:07) HIVES SWELLING Is last menstrual period known: No (mirena) HPI Comments Details: Presenting complaining of irregular menstrual cycles over the last 2 months on Mirena IUD no associated pelvic cramping or pain no other symptoms. 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 Gender identity: Female Female Reproductive History Menstrual Age of Menarche: 12 Review of Systems Const All systems reviewed & are unremarkable except as noted in HPI and below Physical Exam Vital Signs: BMI result Body Mass Index 35.3 General: Yes no CVA tenderness External Female Exam: normal external appearance and normal appearance of the urethra Speculum Exam - Vagina: normal appearance of the vagina, normal palpation, no lesions and no masses Speculum Exam - Cervix: normal appearance of the cervix, normal palpation, no lesions, no masses, nontender and Other cervical findings present (IUD string in place) Bimanual exam- vagina & uterus: normal bimanual exam, normal palpation, uterine size normal, normal palpation, uterine shape normal, No Cervical tenderness present and non-tender Bimanual Exam- Adnexa, other: normal adnexae Back/Spine/Pelvis Back: no CVA tenderness Results AMB Test Urine AMB Test Urine Negative Last Edit by Mariah Pinto CMA on 09/30/24 10:12 Results Reviewed Results Reviewed: Laboratory Last Values Tst Clinic Negative 09/30/24 10:11 Assessment & Plan Assessment & Plan (1) Abnormal uterine bleeding (AUB): Comment: with Mirena IUD Code(s): N93.9 - Abnormal uterine and vaginal bleeding, unspecified Category: Medical Plan: UPT done in the office was negative. GC and chlamydia taken CBC, TSH, HCG, and pelvic ultrasound ordered. Discussed with the patient the different causes of abnormal bleeding including thyroid disorders, uterine and ovarian pathology, endometrial hyperplasia, carcinoma and other potential causes. Discussed with the patient the work up including CBC (to r/o anemia), TSH, pelvic Ultrasound, endometrial biopsy to r/o endometrial pathology. All questions answered and the patient verbalized understanding. Instructed the patient to schedule an appointment for an endometrial biopsy in 2 weeks. Orders: Orders US pelvic and transvaginal Today N93.9 - Abnormal uterine and vaginal bleeding, unspecified TSH reflex Free T4 Today N93.9 - Abnormal uterine and vaginal bleeding, unspecified HCG Quantitative Today N93.9 - Abnormal uterine and vaginal bleeding, unspecified AMB HCG Urine Test Today Z32.02 - Encounter for test, result negative Complete Blood Count no Diff Today N93.9 - Abnormal uterine and vaginal bleeding, unspecified Coding Level of Care Code Est Pt Level 3 (18060) Diagnoses Abnormal uterine bleeding (AUB) N93.9
[2024-09-30 10:06] VITALS: BMI 35.3
--- OUTSIDE RECORDS SUMMARY | 2024-09-30 10:50 | XMS_ITS | Clinical Summary ---
Author Organization [address] [facility] Address [address] [place] [address] Phone Care Team Providers Care Engine House Helper Name Role Phone Junito Mitchell DO Primary Care Provider [phone] Social History Tobacco Use Types Packs/Day Years Used Date Smoking Tobacco: Never Assessed Comments Unknown Sex and Gender Information Value Date Recorded Sex Assigned at Not on file Legal Sex Female 8:08 AM EST Gender Identity Not on file Sexual Orientation Not on file Plan of Treatment Health Maintenance Due Date Last Done Comments [...] on patient's age to complete this topic Insurance MEDICAID - [place] Care Teams Engine House Helper Relationship Specialty Start Date End Date Junito Mitchell DO [address] [place] [phone] PCP - General Internal Medicine 05/03/24
== END 2024-09-30 11:24 | disposition home or self-care (01) ==
LOC: HO.HWS 09:56
PROVIDERS: PCP Internal Medicine; Visit Provider Obstetrics & Gynecology
DX: Z32.02 Encounter for pregnancy test, result negative (principal); N93.9 Abnormal uterine and vaginal bleeding, unspecified
CPT/HCPCS: 99213

== ENCOUNTER 2024-09-30 09:56 | Outpatient (REF) | payer OTHER, SELFPAY ==
--- OUTSIDE RECORDS SUMMARY | 2024-09-30 11:44 | XMS_ITS | Clinical Summary ---
Author Organization [address] [facility] Address [address] [place] [address] Phone Care Team Providers Care Shell Sorter Name Role Phone Junito Mitchell DO Primary Care Provider [phone] Social History Tobacco Use Types Packs/Day Years [...] topic Insurance MEDICAID - [place] Care Teams Shell Sorter Relationship Specialty Start Date End Date Junito Mitchell DO [address] [place] [phone] PCP - General Internal Medicine 05/03/24
[2024-09-30 17:16] LABS: CT PCR NOT DETECTED (Not Detect.); NG PCR NOT DETECTED (Not Detect.)
== END 2024-09-30 09:57 | disposition home or self-care (01) ==
LOC: HO.LNP 09:56
PROVIDERS: PCP Internal Medicine; Visit Provider Obstetrics & Gynecology
DX: N93.9 Abnormal uterine and vaginal bleeding, unspecified (principal); Z32.02 Encounter for pregnancy test, result negative; Z97.5 Presence of (intrauterine) contraceptive device
CPT/HCPCS: 81025; 87491; 87591; 99212

== ENCOUNTER 2024-10-22 09:27 | Outpatient (AMB) | payer OTHER, SELFPAY ==
--- NOTE | 2024-10-22 09:30 | A.OFFVIS_ITS ---
Vital Signs 10/22/24 10:01 Height 5 ft 2 in Weight 185 lb 6 oz BMI 33.9 BP 136/82 Blood Pressure Location Rt brachial Position Sitting Pulse 108 H Pulse Source Pulse Oximeter Pulse Oximetry (%) 98 Oxygen Delivery Method Room Air Intake Visit Reasons: Cholelithiasis and RUQ pain Intake Note: New patient for initial eval of abd pain. CC: C.O RUQ pain and GERD with pertinent FMHx (CRC MGM). Pt reports that she has had kidney and gallstones for about the last year but per lack of coordination in her PCPs office, they never informed her of this until just recently. She re cently started with a new provider through the same office and was referred to our office subsequently thereafter. Supersonic Engineer Required: No Accompanied by: Self / Same As Patient Allergies oxycodone [From PERCOCET] Allergy (Unknown, Verified 10/22/24 09:39) HIVES SWELLING HPI HPI Cholelithiasis and RUQ pain: Details: 39-year-old female here for initial evaluation of right upper quadrant pain and ?cholelithiasis. ? she is referred by Dr. Stewart of [facility]. PMX Hypertension Nephrolithiasis Menorrhagia with uterine fibroids * SURGICAL HISTORY Foot surgery * ALLERGIES Oxycodone * [facility] LABS: None recent TODAY'S VISIT THERE IS an ultrasound included in the primary care note showing multiple mobile gallstones. This referral formed at [facility]. Onset about 5-6 years ago with discomfort in the RUQ right under the rib. She has a feeling of a norm horse in the area, and and she has had multiple US but the reports got lost. She was told she had both gallstones and renal stones. The stones appear to be al in the kidneys, popeye the right, but not in the ureter w/o any hydronephrosis (she is seeing urology). She feels bloated all the time and her pain is r/t eating, almost immediately after starting and lasts for hours. It is set off by qty of food, she is unsure if fatty foods are a trigger I am a junk food junkie! She has an increase in HB, no N/V, dysphagia. She takes fiber and moves her bowel daily, if she does not take it will have CIC. Her symptoms certainly seem more consistent with smoldering gallbladder issues than renal issues but will get a HIDA scan to tease out the differential. ROV after HIDA scan. 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[employer] Sexual orientation: Straight/Heterosexual Gender identity: Female Female Reproductive History Menstrual Age of Menarche: 12 Review of Systems Const Denies fatigue, Denies fever(s), Denies night sweats, Denies poor appetite and Denies weight loss ENT Reports Normal hearing present, Denies dental pain, Denies dysphagia, Denies hearing loss, Denies mouth pain, Denies odynophagia, Denies throat swelling, Denies tongue swelling and Reports other (Dentition adequate) Card Reports no additional complaints Resp Reports no additional complaints GI Details: Reports abdominal pain, Reports belching, Denies melena, Reports bloating, Denies hematochezia, Denies constipation, Denies GI cramping, Denies dysphagia, Denies excessive flatus, Denies early satiety, Reports heartburn, Denies diarrhea, Denies nausea, Denies odynophagia, Denies vomiting and Denies hematemesis Skin/Breast Denies pruritus, Denies lesions, Denies rash and Denies jaundice Neuro Reports Normal hearing present and Denies Abnormal speech present Endo Denies fatigue Aller/Immun Denies throat swelling and Denies tongue swelling Physical Exam Vital Signs: Last Vital Signs Pulse 108 H 10/22/24 10:01 BP 136/82 10/22/24 10:01 Pulse Ox 98 10/22/24 10:01 Oxygen Delivery Method Room Air 10/22/24 10:01 BMI result Body Mass Index 33.9 Const General: cooperative, no acute distress, well developed and well groomed Nutritional Appearance: well nourished and obese Orientation/consciousness: oriented to person, oriented to place and oriented to time Limitations: No language barrier HEENT Head: Yes normocephalic and Yes atraumatic Eyes General: appearance normal, both eyes and all related structures Pupils: Equal, round and reactive pupils present Neck Neck: Yes normal visual inspection and Yes no lymphadenopathy Thyroid: Thyroid normal Resp Effort & Inspection: normal respiratory effort and able to speak in complete sentences Auscultation: clear to auscultation bilaterally Cardio Rate: regular rate Rhythm: regular rhythm Heart sounds: Normal, physiologic split S2 sound present Peripheral pulses: radial pulses present and posterior tibial pulses present GI Inspection: Yes distended, No Abdominal panniculus present, Yes obesity and Yes striae Palpation (GI): Soft to palpation, Tenderness to palpation present (GI) in the RUQ and periumbilically (Mild), no guarding, not rigid and No hepatosplenomegaly present Percussion: Yes normal to percussion Auscultation: normal bowel sounds Rectal Exam - Female: deferred Skin General skin exam: no rashes or lesions noted, turgor normal, skin not dry, no jaundice, No spider nevi and no striae Rashes: no rashes Nails: normal Neuro General: oriented to person, oriented to place and oriented to time Cranial nerves: Yes Equal, round and reactive pupils present and Yes Normal hearing present Speech: No Abnormal speech present Extrem General: Yes normal to inspection, No clubbing, No cyanosis and No edema Psych Appearance: grossly normal and well kempt Mental Status: mental status grossly normal Speech and movement: Normal speech and movement present Affect: normal affect Attitude: cooperative Thought process: Normal thought process present and not confabulating Thought content: Normal thought content present Insight: Good insight present (Psych) Judgement: Good judgement present (Psych) Assessment & Plan Assessment & Plan (1) Gallstones: Code(s): K80.20 - Calculus of gallbladder without cholecystitis without obstruction Category: Medical (2) RUQ pain: Code(s): R10.11 - Right upper quadrant pain Category: Medical Plan THERE IS an ultrasound included in the primary care note showing multiple mobile gallstones. This referral formed at [facility]. Onset about 5-6 years ago with discomfort in the RUQ right under the rib. She has a feeling of a norm horse in the area, and and she has had multiple US but the reports got lost. She was told she had both gallstones and renal stones. The stones appear to be al in the kidneys, popeye the right, but not in the ureter w/o any hydronephrosis (she is seeing urology). She feels bloated all the time and her pain is r/t eating, almost immediately after starting and lasts for hours. It is set off by qty of food, she is unsure if fatty foods are a trigger I am a junk food junkie! She has an increase in HB, no N/V, dysphagia. She takes fiber and moves her bowel daily, if she does not take it will have CIC. Her symptoms certainly seem more consistent with smoldering gallbladder issues than renal issues but will get a HIDA scan to tease out the differential. ROV after HIDA scan. Orders: Orders Comprehensive Met. Panel Today K80.20 - Calculus of gallbladder without cholecystitis without obstruction, R10.11 - Right upper quadrant pain NM hepatobiliary w pharm Today K80.20 - Calculus of gallbladder without cholecystitis without obstruction, R10.11 - Right upper quadrant pain Coding Level of Care Code New Pt Level 3 (25961) Diagnoses Gallstones K80.20 RUQ pain R10.11
[2024-10-22 10:01] VITALS: BP 136/82; PULSE 108; O2SAT 98; BMI 33.9
== END 2024-10-22 10:26 | disposition home or self-care (01) ==
LOC: HO.HGI 09:28
PROVIDERS: PCP Internal Medicine; Visit Provider Nurse Practitioner
DX: K80.20 Calculus of gallbladder without cholecystitis without obstruction (principal); R10.11 Right upper quadrant pain
CPT/HCPCS: 99203

== ENCOUNTER → 2024-10-22 09:27 | Outpatient (BNVA) | payer OTHER, SELFPAY | PROVIDERS: PCP Internal Medicine; Visit Provider Nurse Practitioner | DX: K80.20 Calculus of gallbladder without cholecystitis without obstruction (principal); R10.11 Right upper quadrant pain | CPT/HCPCS: 99202 ==

== ENCOUNTER 2024-10-28 16:21 | Outpatient (REF) | payer OTHER, SELFPAY ==
--- NOTE | ~2024-10-28 | US_ITS ---
EXAMINATION: US PELVIS CLINICAL INFORMATION: Abnormal uterine bleeding. Measure bleeding for 2 weeks COMPARISON: June 07, 2022 TECHNIQUE: Ultrasound of the pelvis is performed using transabdominal imaging but transvaginal was declined by the patient. Color-flow Doppler performed. FINDINGS: Uterus: The uterus is antiflexed and measures 10 x 4.6 x 5.3 cm. The endometrial stripe thickness is 2 mm. There is a hypoechoic region in the fundal myometrium measuring 13 x 16 mm, present on the prior. On the prior, there was a heterogeneous region in the anterior fundus that is not documented on the current study. Linear echogenic device in the mid to lower uterine canal demonstrates an area protruding into the anterior myometrium of the body of the uterus. The upper margin of the IUD is 17 mm distal from the apex of the endometrial canal. Adnexa: Both ovaries are visualized. There is normal color flow to the adnexa. There is no ovarian torsion. There is no pelvic ascites or fluid collection. Right ovary measures 2.7 x 1.7 x 2.0 cm. Left ovary measures 3.5 x 1.9 x 3.8 cm. There is a 2.7 x 2.4 x 2.8 cm dominant follicle. US/US pelvic complete IMPRESSION: Patient declined transvaginal imaging. IUD is low lying, 17 mm from the apex of the uterine canal. One of the arms appears to protrude into the anterior myometrium of the mid uterine body, however this is not optimally demonstrated transabdominally. Electronically signed by: Joseph Enciso MD 10/28/2024 06:13 PM EDT
== END 2024-10-28 16:22 | disposition home or self-care (01) ==
LOC: HO.US 16:21
PROVIDERS: PCP Internal Medicine; Visit Provider Obstetrics & Gynecology
DX: N93.9 Abnormal uterine and vaginal bleeding, unspecified (principal)
CPT/HCPCS: 76856

== ENCOUNTER 2024-10-29 10:59 | Outpatient (AMB) | payer OTHER, SELFPAY ==
--- NOTE | 2024-10-29 11:01 | MHC.OFFVIS ---
Vital Signs 10/29/24 11:02 Height 5 ft 4 in Weight 185 lb BMI 31.8 BP 142/88 H Intake Visit Reasons: Mirena removal and insertion/ EMB/u/s results Answering Service Telephone Operator Required: No Information Interpreted: non-clinical & clinical Web Press Operator Apprentice: Web Press Operator Apprentice Present (Mariah SINGH) Accompanied by: Self / Same As Patient Allergies oxycodone [From PERCOCET] Allergy (Unknown, Verified 10/29/24 11:07) HIVES SWELLING Is last menstrual period known: No (mirena) HPI Comments Details: Presenting for EMB and ultrasound follow-up showing the following: Uterus: The uterus is antiflexed and measures 10 x 4.6 x 5.3 cm. The endometrial stripe thickness is 2 mm. There is a hypoechoic region in the fundal myometrium measuring 13 x 16 mm, present on the prior. On the prior, there was a heterogeneous region in the anterior fundus that is not documented on the current study. Linear echogenic device in the mid to lower uterine canal demonstrates an area protruding into the anterior myometrium of the body of the uterus. The upper margin of the IUD is 17 mm distal from the apex of the endometrial canal. Adnexa: Both ovaries are visualized. There is normal color flow to the adnexa. There is no ovarian torsion. There is no pelvic ascites or fluid collection. Right ovary measures 2.7 x 1.7 x 2.0 cm. Left ovary measures 3.5 x 1.9 x 3.8 cm. There is a 2.7 x 2.4 x 2.8 cm dominant follicle. 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 hysteroscopy D&C) & the risks were discussed with the patient including but not limited: pain, uterine perforation, bleeding, infection, possible injury to bladder, bowel, ureter, possible need for blood transfusion with all its possible risks. The patient verbalized understanding all questions answered and signed consent. Urine test done in the office was negative The patient was placed into the dorsal lithotomy position; a speculum was inserted in the vagina. Using aseptic technique for the procedure, the cervix was cleansed with Betadine. The anterior lip of the cervix was grasped with a single tooth tenaculum. The uterus was sounded to 7 cm with a 4 mm Pipelle was used. Tissues samples were obtained and placed in formalin, in a patient labeled container and sent to the pathology department. At the end of the procedure, there was minimal bleeding noted The patient tolerated the procedure well and was discharged in good condition with the following instructions: Nothing in the vagina until the bleeding stops. No sex until the bleeding stops, to call if any of the following occurs: fever (>100.4), flu-like symptoms, abdominal pain, heavy bleeding, four smelling vaginal discharge. The patient was instructed to schedule a Follow up appointment in 2 weeks to discuss pathology results of the biopsy and treatment options. This note was generated with a voice recognition program. Some errors may have been overlooked during the review of this note. Sometimes these errors may affect the content or meaning of a given sentence. 01941-[id number] Biopsy IUD Insert/Removal Details Details: The patient is presenting for IUD removal and IUD reinsertion. Her last menstrual period was within the last 5 days, Urine test was done in the office and was negative; All the contraindications were excluded. The following possible complications were discussed with the patient: Intrauterine , Ectopic , Sepsis, Pelvic Infection, Irregular Bleeding and Amenorrhea, Perforation, Expulsion, Ovarian Cysts, Breast Cancer. The following adverse effects were discussed with the patient: alteration of menstrual bleeding pattern, including: unscheduled uterine bleeding decreased uterine bleeding increased scheduled uterine bleeding female genital tract bleeding ,amenorrhea , genital discharge , vulvovaginitis , breast pain , benign ovarian cyst and associated complications , dysmenorrhea , Gastrointestinal disorders abdominal/pelvic pain, headache/migraine , back pain , acne , depression Alternative options were discussed with the patient including but not limited: control pills, patch, NuvaRing, Depo-medroxyprogesterone acetate, Nexplanon, copper IUD, sterilization, vasectomy, others The procedure was explained in detail to patient , at the end patient signed the informed consent obtained. Alternative options were discussed with the patient The patient signed the consent and agreed with the plan; all questions answered. Urine test was done in the office and was negative Preop dx: Requesting IUD removal and Reinsertion Op: IUD removal and Mirena insertion Post op dx: same EBL= 10 cc Procedure: The patient was put in the dorsal lithotomy position a speculum was inserted in the vagina the IUD thread identified. Using a Caterina clamp the thread was grasped and the IUD pulled out with no complications. A no touch technique was used throughout the procedure. A speculum was placed into vagina and cervix was cleaned with betadine). A tenaculum was placed. A plastic sound was advanced through the external and internal os until it reached the fundus of the uterus, the depth was 8 cm. The sound was then withdrawn. The IUD was loaded in a sterile manner and advanced into position. The string was visualized and cut to 3 cm. Tenaculum site hemostatic. All instruments removed from vagina. Patient tolerated the procedure well. NO complications were noted. Patient was instructed to call for fever over 100.4, significant pain unrelieved by Motrin, IUD expulsion, heavy bleeding, or abnormal discharge. In addition, the following clinical considerations were discussed with the patient to call for removal: A stroke or heart attack ,Very severe or migraine headaches ,Unexplained fever ,Yellowing of the skin or whites of the eyes, as these may be signs of serious liver problems , or suspected , Pelvic pain or pain during sex ,HIV positive seroconversion in herself or her partner , Possible exposure to sexually transmitted infections Unusual vaginal discharge or genital sores , severe vaginal bleeding or bleeding that lasts a long time, or if she misses a menstrual period, Inability to feel Mirena's threads Counseled the patient that the IUD does not protect against STI's, recommended use of condoms for the first 7 days post insertion and explained to the patient that condoms are recommended for patients at risk for sexually transmitted infections. Follow up appointment made for 4 weeks following insertion. Date of removal in no more than five years for DUB treatment and 8 years for contraception from today?s date was d/w patient. This note was generated with a voice recognition program. Some errors may have been overlooked during the review of this note. Sometimes these errors may affect the content or meaning of a given sentence. 65720-PJG Insertion 47960-UGL Removal Procedure code (CPT) selection complete Office Meds Mirena 21 mcg/24 hr (up to 8 years) 52 mg intrauterine device Performing Provider: Errol Darby MD Performing Location: [facility] [place] [facility] Documented (not given) by: Errol Darby MD on 10/29/24 12:03 Dose Route Admin Location Dispensed Lot Number Expiration Date [facility] Data Entry Processor 1 device intrauterine ea Results AMB Test Urine AMB Test Urine Negative Last Edit by Mariah Pinto CMA on 10/29/24 11:27 Results Reviewed Results Reviewed: Laboratory Last Values [facility] Clinic Negative 10/29/24 11:26 Assessment & Plan Assessment & Plan (1) Malpositioned IUD: Code(s): T83.32XA - Displacement of intrauterine contraceptive device, initial encounter Category: Medical Plan: Discussed with the patient the results of ultrasound showing malpositioned IUP, recommended Mirena IUD removal. Different options of treatment discussed with the patient, the patient would like to have Mirena IUD inserted for time being and revisit different options of treatment afterwards. Mirena IUD removed and reinserted, see procedure note (2) Abnormal uterine bleeding (AUB): Code(s): N93.9 - Abnormal uterine and vaginal bleeding, unspecified Category: Medical Plan: EMB done, see procedure note Orders: Orders Surgical Today N93.9 - Abnormal uterine and vaginal bleeding, unspecified, Z30.433 - Encounter for removal and reinsertion of intrauterine contraceptive device CT NG by PCR Today N93.9 - Abnormal uterine and vaginal bleeding, unspecified, Z30.433 - Encounter for removal and reinsertion of intrauterine contraceptive device AMB HCG Urine Test Today Z32.02 - Encounter for test, result negative AMB Endometrial Biopsy Today N93.9 - Abnormal uterine and vaginal bleeding, unspecified AMB IUD Insertion/Removal - Practice Supplied Today T83.32XA - Displacement of intrauterine contraceptive device, initial encounter Medications: New Mirena (levonorgestrel) 1 device intrauterine ONCE 1 ea 0RF Malpositioned IUD NS T83.32XA - Displacement of intrauterine contraceptive device, initial encounter Coding Level of Care Code Est Pt Level 3 (06244) Procedure Only Diagnoses Malpositioned IUD T83.32XA Abnormal uterine bleeding (AUB) N93.9 CPT Codes Endometrial Biopsy - CPT: 56272-Shfbjpvhlou Biopsy ([id number]) Details - CPT: 16757-ZUU Insertion ([id number]) Details - CPT: 68703-TOV Removal ([id number])
[2024-10-29 11:02] VITALS: BP 142/88; BMI 31.8
== END 2024-10-29 11:23 | disposition home or self-care (01) ==
LOC: HO.HWS 10:59
PROVIDERS: PCP Internal Medicine; Visit Provider Obstetrics & Gynecology
DX: T83.32XA Displacement of intrauterine contraceptive device, initial encounter (principal); N93.9 Abnormal uterine and vaginal bleeding, unspecified; Z32.02 Encounter for pregnancy test, result negative; Z30.433 Encounter for removal and reinsertion of intrauterine contraceptive device
CPT/HCPCS: 58100; 58300; 58301; 99213

== ENCOUNTER 2024-10-29 10:59 | Outpatient (REF) | payer OTHER, SELFPAY ==
[2024-10-29 12:24] LABS: Hemoglobin 14.1 g/dl (12.0-16.0); Mean Corpuscular HGB Conc 34.4 g/dl (31.0-35.0); Mean Corpuscular Hemoglobin 29.4 pg (27.0-33.0); Mean Corpuscular Volume 85.4 fL (80.0-98.0); Mean Platelet Volume 10.8 fL (9.4-12.3); Platelet Count 250 X10*3/uL (160-400); Red Cell Distribution Width 12.4 % (11.0-16.0); White Blood Count 6.9 X10*3/uL (4.8-10.8)
[2024-10-29 12:53] LABS: Alanine Aminotransferase 35 U/L (0-31); Albumin Level 5.1 g/dL (3.5-5.0); Alkaline Phosphatase 68 U/L (39-117); Anion Gap 14 (12-20); Aspartate Amino Transferase 24 U/L (5-31); Bilirubin Total 0.4 mg/dL (0.0-1.0); Blood Urea Nitrogen 12 mg/dL (9-16); Carbon Dioxide 24 mmol/L (22-29); Chloride 107 mmol/L (96-108); Estimated Glomerular Filt Rate > 60; Glucose Random 105 mg/dL (60-115); Potassium 3.8 mmol/L (3.3-5.1); Sodium 141 mmol/L (135-145); Total Protein 7.4 g/dL (6.5-8.0)
[2024-10-29 13:16] LABS: HCG Quantitative < 2 mIU/mL; TSH reflex Free T4 1.15 uIU/mL (0.32-4.0)
[2024-10-29 14:29] LABS: CT PCR NOT DETECTED (Not Detect.); NG PCR NOT DETECTED (Not Detect.)
== END 2024-10-29 11:00 | disposition home or self-care (01) ==
LOC: HO.LAB 10:59
PROVIDERS: Nurse Practitioner; PCP Internal Medicine; Visit Provider Obstetrics & Gynecology
DX: Z30.433 Encounter for removal and reinsertion of intrauterine contraceptive device (principal); N93.9 Abnormal uterine and vaginal bleeding, unspecified; K80.20 Calculus of gallbladder without cholecystitis without obstruction; R10.11 Right upper quadrant pain
CPT/HCPCS: 36415; 58100; 58300; 58301; 80053; 81025; 84443; 84702; 85027; 87491; 87591; 88305; 99212; J7298

== ENCOUNTER → 2024-12-06 10:02 | Outpatient (REF) | payer OTHER, SELFPAY ==
--- NOTE | ~2024-12-06 | NM_ITS ---
EXAMINATION: NM HEPATOBILIARY WITH PHARM HISTORY: K80.20 - Calculus of gallbladder without cholecystitis without obstruction. TECHNIQUE: An hepatobiliary scan was performed following the intravenous administration of 5 mCi technetium 99m-mebrofenin. Sequential images were obtained over 1 hour. Subsequently, the patient received 1.7 microgram of IV CCK over 30 minutes and additional imaging was performed. COMPARISON: There are no prior studies available for comparison. FINDINGS: There is normal uptake and excretion of the radiopharmaceutical by the liver. Gallbladder activity is noted at 36 minutes. Common bile duct activity is seen at 12 minutes. Small bowel activity is noted at 18 minutes. After the administration of intravenous CCK, the estimated gallbladder ejection fraction is 61%, which is within normal limits (normal 35-80%). NM/NM hepatobiliary w pharm IMPRESSION: Normal hepatobiliary scan with normal gallbladder ejection fraction. Electronically signed by: Sina Reeves MD 12/06/2024 12:49 PM EDT
== END ==
LOC: HO.NUCMED 10:02
PROVIDERS: PCP Internal Medicine; Visit Provider Nurse Practitioner
DX: K80.20 Calculus of gallbladder without cholecystitis without obstruction (principal); R10.11 Right upper quadrant pain
CPT/HCPCS: 78227; A9537; J2805

== ENCOUNTER → 2024-12-06 10:05 | Outpatient (BNV) | payer OTHER, SELFPAY | PROVIDERS: PCP Internal Medicine; Visit Provider Radiology Diagnostic Radiology | DX: K80.20 Calculus of gallbladder without cholecystitis without obstruction (principal) | CPT/HCPCS: 78227 ==

== ENCOUNTER 2024-12-09 07:25 | Outpatient (AMB) | payer OTHER, SELFPAY ==
--- NOTE | 2024-12-09 07:38 | A.OFFVIS_ITS ---
Vital Signs 12/09/24 07:39 Height 5 ft 4 in Weight 185 lb BMI 31.8 BP 136/84 Intake Visit Reasons: 6 weeks iud check and emb results Ultrasonic Seaming Machine Operator Required: No Information Interpreted: non-clinical & clinical Pilot Safety Inspector: Pilot Safety Inspector Present (Mariah SINGH) Accompanied by: Self / Same As Patient Allergies oxycodone (From PERCOCET) Allergy (Unknown, Verified 12/09/24 07:40) HIVES SWELLING Is last menstrual period known: No (mirena) HPI Comments Details: The patient is presenting for follow-up to discuss the results of her abnormal uterine bleeding workup and options of treatment. The following workup was done.: H&H= 14. TSH, hCG, GC and chlamydia were negative. Endometrial biopsy pathology showed the following: Endometrium, biopsy: Fragments of benign endometrium with breakdown, ectatic stromal vessels, fragments of necrotic tissue, atrophic glands, and decidual stromal change, consistent with progestin effect, and fragments of benign endocervical glandular mucosa; no atypia or carcinoma. Co testing was done was negative. Pelvic ultrasound showed the following: IMPRESSION: Patient declined transvaginal imaging. IUD is low lying, 17 mm from the apex of the uterine canal. One of the arms appears to protrude into the anterior myometrium of the mid uterine body, however this is not optimally demonstrated transabdominally. Mirena IUD was taken out and new Mirena IUD was reinserted on 10/29 The patient continues to have vaginal bleeding since IUD insertion no pelvic pain or other concerns PFSH Medical History Sterilization ASCUS of cervix with negative high risk HPV HTN (hypertension) Surgical History Hx of foot surgery Hx of section Family History Mother HTN (hypertension) Diabetes Maternal Aunt Leukemia Maternal Grandmother Colon cancer Maternal Uncle Leukemia Social History Household Members: Children Household Members Other:: mom Housing: House Alcohol intake: never Patient Tobacco Use Status: Former Tobacco user Years Smoked: 16 service: No Current occupational status: employed 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[employer] Sexual orientation: Straight/Heterosexual Gender identity: Female Female Reproductive History Menstrual Age of Menarche: 12 Review of Systems Const All systems reviewed & are unremarkable except as noted in HPI and below Physical Exam Vital Signs: Last Vital Signs BP 136/84 12/09/24 07:39 BMI result Body Mass Index 31.8 General: Yes no CVA tenderness External Female Exam: normal external appearance and normal appearance of the urethra Speculum Exam - Vagina: normal appearance of the vagina, normal palpation, no lesions and no masses Speculum Exam - Cervix: normal appearance of the cervix, normal palpation, no lesions, no masses, nontender and Other cervical findings present (IUD string in place) Bimanual exam- vagina & uterus: normal bimanual exam, normal palpation, uterine size normal, normal palpation, uterine shape normal, No Cervical tenderness present and non-tender Bimanual Exam- Adnexa, other: normal adnexae Back/Spine/Pelvis Back: no CVA tenderness Results AMB Test Urine AMB Test Urine Negative Last Edit by Mariah Pinto CMA on 07:40 Assessment & Plan Assessment & Plan (1) IUD check up: Code(s): Z30.431 - Encounter for routine checking of intrauterine contraceptive device Category: Medical Plan: UPT done in the office was negative. Discussed with the patient the finding on physical exam, IUD string in place, the patient was reassured. Instructions given to patient to call in case of temperature above 100.4, severe cramping/pelvic pain, abnormal discharge or persistent abnormal uterine bleeding or if she misses her menstrual cycle. Otherwise follow-up at her annual exam appointment. Discussed with the patient the results of the work up done and options of treatment including but not limited to BCP's, cyclic Progesterone, Mirena IUD, endometrial ablation and hysterectomy. All pros, cons, risks and benefits of each option were discussed with the patient and the patient decided to wait few months to see if AUB is improved with Mirena IUD otherwise will go ahead with cyclic Provera, so a more detailed discussion re: Progesterone treatment including mechanism of action, benefits (regular menses, endometrial protection form unopposed estrogen and reduction in the risk of endometrial hyperplasia and/or cancer ...), risks (Thrombosis, mood changes, weight gain, breast soreness, ? increased breast ca, others). Instructions were given to call if AUB is persistent within few weeks . All questions answered, the patient verbalized understanding. Orders: Orders AMB HCG Urine Test Today Z32.02 - Encounter for test, result negative Coding Level of Care Code Est Pt Level 3 (43848) Diagnoses IUD check up Z30.431
[2024-12-09 07:39] VITALS: BP 136/84; BMI 31.8
== END 2024-12-09 07:49 | disposition home or self-care (01) ==
LOC: HO.HWS 07:25
PROVIDERS: PCP Internal Medicine; Visit Provider Obstetrics & Gynecology
DX: Z32.02 Encounter for pregnancy test, result negative (principal); Z30.431 Encounter for routine checking of intrauterine contraceptive device
CPT/HCPCS: 99213

== ENCOUNTER → 2024-12-09 07:25 | Outpatient (BNVA) | payer OTHER, SELFPAY | PROVIDERS: PCP Internal Medicine; Visit Provider Obstetrics & Gynecology | DX: Z30.431 Encounter for routine checking of intrauterine contraceptive device (principal); N93.9 Abnormal uterine and vaginal bleeding, unspecified; Z32.02 Encounter for pregnancy test, result negative | CPT/HCPCS: 81025; 99212 ==

== ENCOUNTER 2025-01-21 08:31 | Outpatient (AMB) | payer OTHER, SELFPAY ==
--- NOTE | 2025-01-21 08:31 | MHC.OFFVIS ---
Vital Signs 01/21/25 08:36 Height 5 ft 4 in Weight 185 lb BMI 31.8 BP 132/76 Intake Visit Reasons: Pre op for Ablation Survey Technologist Required: No Information Interpreted: non-clinical & clinical Accompanied by: Self / Same As Patient Allergies oxycodone (From PERCOCET) Allergy (Unknown, Verified 01/21/25 08:33) HIVES SWELLING HPI Comments Details: The patient is presenting to discuss endometrial ablation for AUB as an alternative options of treatment for Mirena IUD. The patient does not like the Mirena IUD. The following workup for AUB was done 11/10 H&H 14., TSH, hCG negative GC/CT negative 07/13 co testing negative 11/10 EMB pathology showed the following: Endometrium, biopsy: Fragments of benign endometrium with breakdown, ectatic stromal vessels, fragments of necrotic tissue, atrophic glands, and decidual stromal change, consistent with progestin effect, and fragments of benign endocervical glandular mucosa; no atypia or carcinoma 11/10 pelvic ultrasound showed the following: Uterus: The uterus is antiflexed and measures 10 x 4.6 x 5.3 cm. The endometrial stripe thickness is 2 mm. There is a hypoechoic region in the fundal myometrium measuring 13 x 16 mm, present on the prior. On the prior, there was a heterogeneous region in the anterior fundus that is not documented on the current study. Linear echogenic device in the mid to lower uterine canal demonstrates an area protruding into the anterior myometrium of the body of the uterus. The upper margin of the IUD is 17 mm distal from the apex of the endometrial canal. Adnexa: Both ovaries are visualized. There is normal color flow to the adnexa. There is no ovarian torsion. There is no pelvic ascites or fluid collection. Right ovary measures 2.7 x 1.7 x 2.0 cm. Left ovary measures 3.5 x 1.9 x 3.8 cm. There is a 2.7 x 2.4 x 2.8 cm dominant follicle. 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 Gender identity: Female Female Reproductive History Menstrual Age of Menarche: 12 Review of Systems Const All systems reviewed & are unremarkable except as noted in HPI and below Reports as per HPI and Reports no additional complaints GI Reports no additional complaints Reports no additional complaints Physical Exam Vital Signs: Last Vital Signs BP 132/76 01/21/25 08:36 BMI result Body Mass Index 31.8 Assessment & Plan Assessment & Plan (1) Abnormal uterine bleeding (AUB): Code(s): N93.9 - Abnormal uterine and vaginal bleeding, unspecified Category: Medical Plan: Discussed with the patient the results of the work up done and options of treatment including Lysteda, BCP's, Mirena IUD, endometrial ablation and hysterectomy. All pros, cons, risks and benefits if each option was discussed with the patient and the patient decided to go ahead with endometrial ablation. so a more detailed discussion about the procedure was conducted including mechanism of action, effectiveness and its potential failure rate in the coming 3-5 years, its risks (initial or future failure of AUB control, uterine perforation, infection, injury to bladder, bowel, ureter, and blood vessels, possible need for blood transfusion, inability to access the uterine cavity in order to sample the endometrial cavity to rule out endometrial pathology including endometrial cancer and others), post ablation syndrome, benefits ( hypomenorrhea, amenorrhea, ...) . The patient verbalized understanding Please schedule an appointment for Mirena IUD removal and preop Coding Level of Care Code Est Pt Level 3 (29680) Diagnoses Abnormal uterine bleeding (AUB) N93.9
[2025-01-21 08:36] VITALS: BP 132/76; BMI 31.8
== END 2025-01-21 09:05 | disposition home or self-care (01) ==
LOC: HO.HWS 08:31
PROVIDERS: PCP Internal Medicine; Visit Provider Obstetrics & Gynecology
DX: N93.9 Abnormal uterine and vaginal bleeding, unspecified (principal)
CPT/HCPCS: 99213

== ENCOUNTER → 2025-01-21 08:31 | Outpatient (BNVA) | payer OTHER, SELFPAY | PROVIDERS: PCP Internal Medicine; Visit Provider Obstetrics & Gynecology | DX: Z71.2 Person consulting for explanation of examination or test findings (principal); N93.9 Abnormal uterine and vaginal bleeding, unspecified | CPT/HCPCS: 99212 ==

== ENCOUNTER 2025-02-18 15:13 | Outpatient (AMB) | payer OTHER, SELFPAY ==
--- NOTE | 2025-02-18 15:19 | MHC.OFFVIS ---
Vital Signs 02/18/25 15:23 Height 5 ft 4 in Weight 185 lb 10.067 oz BMI 31.9 BP 129/91 H Blood Pressure Location Rt brachial Position Sitting Pulse 102 H Intake Visit Reasons: Follow up to scan Intake Note: Dinora presents to in office follow up of HIDA scan. CC: Patient reports doing ok because she has been eating less but continues having RUQ abd pain and GERD. Head Insulation Board Saw Operator Required: No Allergies oxycodone (From PERCOCET) Allergy (Unknown, Verified 02/18/25 15:29) HIVES SWELLING HPI HPI Follow up to scan: Details: Assessment & Plan (1) Gallstones: Code(s): K80.20 - Calculus of gallbladder without cholecystitis without obstruction Category: Medical (2) RUQ pain: Code(s): R10.11 - Right upper quadrant pain Category: Medical Plan THERE IS an ultrasound included in the primary care note showing multiple mobile gallstones. This referral formed at [facility]. Onset about 5-6 years ago with discomfort in the RUQ right under the rib. She has a feeling of a norm horse in the area, and and she has had multiple US but the reports got lost. She was told she had both gallstones and renal stones. The stones appear to be al in the kidneys, popeye the right, but not in the ureter w/o any hydronephrosis (she is seeing urology). She feels bloated all the time and her pain is r/t eating, almost immediately after starting and lasts for hours. It is set off by qty of food, she is unsure if fatty foods are a trigger I am a junk food junkie! She has an increase in HB, no N/V, dysphagia. She takes fiber and moves her bowel daily, if she does not take it will have CIC. Her symptoms certainly seem more consistent with smoldering gallbladder issues than renal issues but will get a HIDA scan to tease out the differential. ROV after HIDA scan. Orders: Orders Comprehensive Met. Panel Today K80.20 - Calculus of gallbladder without cholecystitis without obstruction, R10.11 - Right upper quadrant pain NM hepatobiliary w pharm Today K80.20 - Calculus of gallbladder without cholecystitis without obstruction, R10.11 - Right upper quadrant pain LABS; Laboratory Tests 10/29/24 11:38 Estimated GFR > 60 Total Bilirubin 0.4 AST 24 ALT 35 H Alkaline Phosphatase 68 TSH 1.15 HIDA SCAN FINDINGS: There is normal uptake and excretion of the radiopharmaceutical by the liver. Gallbladder activity is noted at 36 minutes. Common bile duct activity is seen at 12 minutes. Small bowel activity is noted at 18 minutes. After the administration of intravenous CCK, the estimated gallbladder ejection fraction is 61%, which is within normal limits (normal 35-80%). NM/NM hepatobiliary w pharm IMPRESSION: Normal hepatobiliary scan with normal gallbladder ejection fraction. 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 Gender identity: Female Female Reproductive History Menstrual Age of Menarche: 12 Review of Systems Const Denies fatigue, Denies fever(s), Denies night sweats, Denies poor appetite and Denies weight loss ENT Reports Normal hearing present, Denies dental pain, Denies dysphagia, Denies hearing loss, Denies mouth pain, Denies odynophagia, Denies throat swelling, Denies tongue swelling and Reports other (Dentition adequate) Card Reports no additional complaints Resp Reports no additional complaints GI Details: Reports abdominal pain, Denies melena, Reports bloating, Denies hematochezia, Denies constipation, Denies GI cramping, Denies dysphagia, Denies excessive flatus, Denies early satiety, Denies heartburn, Denies diarrhea, Denies nausea, Denies odynophagia, Denies vomiting and Denies hematemesis Skin/Breast Denies pruritus, Denies lesions, Denies rash and Denies jaundice Neuro Reports Normal hearing present and Denies Abnormal speech present Endo Denies fatigue Aller/Immun Denies throat swelling and Denies tongue swelling Physical Exam Vital Signs: Last Vital Signs Pulse 102 H 02/18/25 15:23 BP 129/91 H 02/18/25 15:23 BMI result Body Mass Index 31.9 Const General: cooperative, no acute distress, well developed and well groomed Nutritional Appearance: well nourished and obese Orientation/consciousness: oriented to person, oriented to place and oriented to time Limitations: No language barrier HEENT Head: Yes normocephalic and Yes atraumatic Eyes General: appearance normal, both eyes and all related structures Pupils: Equal, round and reactive pupils present Neck Neck: Yes normal visual inspection and Yes no lymphadenopathy Thyroid: Thyroid normal Resp Effort & Inspection: normal respiratory effort and able to speak in complete sentences Auscultation: clear to auscultation bilaterally Cardio Rate: regular rate Rhythm: regular rhythm Heart sounds: Normal, physiologic split S2 sound present Peripheral pulses: radial pulses present and posterior tibial pulses present GI Inspection: No distended, No Abdominal panniculus present and Yes obesity Palpation (GI): Soft to palpation, nontender, no guarding, not rigid and No hepatosplenomegaly present Percussion: Yes normal to percussion Auscultation: normal bowel sounds Rectal Exam - Female: deferred Skin General skin exam: no rashes or lesions noted, turgor normal, skin not dry, no jaundice, No spider nevi and no striae Rashes: no rashes Nails: normal Neuro General: oriented to person, oriented to place and oriented to time Cranial nerves: Yes Equal, round and reactive pupils present and Yes Normal hearing present Speech: No Abnormal speech present Extrem General: Yes normal to inspection, No clubbing, No cyanosis and No edema Psych Appearance: grossly normal and well kempt Mental Status: mental status grossly normal Speech and movement: Normal speech and movement present Affect: normal affect Attitude: cooperative Thought process: Normal thought process present and not confabulating Thought content: Normal thought content present Insight: Good insight present (Psych) Judgement: Good judgement present (Psych) Assessment & Plan Assessment & Plan (1) RUQ pain: Code(s): R10.11 - Right upper quadrant pain Category: Medical (2) Back pain: Code(s): M54.9 - Dorsalgia, unspecified Category: Medical (3) Rib pain: Code(s): R07.89 - Other chest pain Category: Medical Plan (She feels bloated all the time and her pain is r/t eating, almost immediately after starting and lasts for hours. It is set off by qty of food, the pain is described as discomfort in the RUQ right under the rib. She has a feeling of a norm horse in the area. To date she has had past ultrasound showing gallstones but a negative HIDA scan.) Her right upper quadrant pain continues feeling like a spasm or a stitch. Although she did have gallstones the HIDA scan did not show an abnormal ejection fraction and did not trigger the symptoms so I do not think this is the cause. Obviously the differential diagnosis is still why but the next saying to seriously consider would be bowels spasm. In order to test this I would like to give her a trial of dicyclomine. To plan for the future I also want to get some x-rays of the area notably of the chest to see if there is any rib problems and of the thoracic and lumbar spines. She is quite agreeable to this. Again of note she does not have any constipation or diarrhea accompanying this symptom. Return office visit in 6 weeks Orders: Orders XR chest 2V Today M54.9 - Dorsalgia, unspecified, R07.89 - Other chest pain, R10.11 - Right upper quadrant pain XR thoracic spine 2V Today M54.9 - Dorsalgia, unspecified, R07.89 - Other chest pain, R10.11 - Right upper quadrant pain XR lumbar spine 2-3V Today M54.9 - Dorsalgia, unspecified, R07.89 - Other chest pain, R10.11 - Right upper quadrant pain Medications: New dicyclomine 20 mg PO QID 120 tabs 6RF 30 days R10.11 - Right upper quadrant pain Coding Level of Care Code Est Pt Level 3 (20019) Diagnoses RUQ pain R10.11 Back pain M54.9 Rib pain R07.89
[2025-02-18 15:23] VITALS: BP 129/91; PULSE 102; BMI 31.9
== END 2025-02-18 15:56 | disposition home or self-care (01) ==
LOC: HO.HGI 15:14
PROVIDERS: Visit Provider Nurse Practitioner
DX: R10.11 Right upper quadrant pain (principal); M54.9 Dorsalgia, unspecified; R07.89 Other chest pain
CPT/HCPCS: 99213

== ENCOUNTER → 2025-02-18 15:13 | Outpatient (BNVA) | payer OTHER, SELFPAY | PROVIDERS: Visit Provider Nurse Practitioner | DX: R10.11 Right upper quadrant pain (principal); M54.9 Dorsalgia, unspecified; R07.89 Other chest pain | CPT/HCPCS: 99212 ==

== ENCOUNTER 2025-03-04 11:02 | Outpatient (REF) | payer OTHER, SELFPAY ==
--- NOTE | ~2025-03-04 | MM_ITS ---
EXAMINATION: MM SCREENING DIGITAL BREAST TOMOSYNTHESIS, BILATERAL CLINICAL INFORMATION: Screening. Asymptomatic. COMPARISON: Mammography: Baseline. TECHNIQUE: Digital breast mammography with tomosynthesis is performed in both the craniocaudal and mediolateral oblique views along with computer-aided detection (CAD). FINDINGS: There are scattered areas of fibroglandular density. There are no significant masses, abnormal calcifications, or other abnormalities. MM/MM tomosynthesis screening BI IMPRESSION: No mammographic evidence of malignancy. ASSESSMENT: BI-RADS Category 1: Negative RECOMMENDATION: Routine annual mammography screening. 1 year F/U This examination should not preclude the clinical evaluation of a suspicious palpable abnormality. This patient's information was entered into a reminder system with a target due date for their next mammogram. Electronically signed by: Baylee Nagy DO 03/07/2025 05:28 PM EDT
== END 2025-03-04 11:03 | disposition home or self-care (01) ==
LOC: HO.MAMMO 11:02
PROVIDERS: PCP Internal Medicine; Visit Provider Obstetrics & Gynecology
DX: Z12.31 Encounter for screening mammogram for malignant neoplasm of breast (principal)
CPT/HCPCS: 77063; 77067

== ENCOUNTER → 2025-03-04 11:15 | Outpatient (BNV) | payer OTHER, SELFPAY | PROVIDERS: PCP Internal Medicine; Visit Provider Internal Medicine | DX: Z12.31 Encounter for screening mammogram for malignant neoplasm of breast (principal) | CPT/HCPCS: 77063; 77067 ==

== ENCOUNTER 2025-03-29 07:26 | Outpatient (REF) | payer OTHER, SELFPAY ==
[2025-03-30 03:06] LABS: Bacterial Vaginosis PCR POSITIVE (Negative); Candida Group PCR NOT DETECTED (Not Detect); Candida glab krusei PCR NOT DETECTED (Not Detect); Trichomonas vaginalis PCR NOT DETECTED (Not Detect)
[2025-03-30 03:37] LABS: CT PCR NOT DETECTED (Not Detect.); NG PCR NOT DETECTED (Not Detect.)
== END 2025-03-29 07:27 | disposition home or self-care (01) ==
LOC: HO.LNP 07:26
PROVIDERS: PCP Internal Medicine; Visit Provider Obstetrics & Gynecology
DX: N76.0 Acute vaginitis (principal); B96.89 Other specified bacterial agents as the cause of diseases classified elsewhere; Z20.2 Contact with and (suspected) exposure to infections with a predominantly sexual mode of transmission
CPT/HCPCS: 81515; 87491; 87591; 99212

== ENCOUNTER 2025-03-29 07:26 | Outpatient (AMB) | payer OTHER, SELFPAY ==
--- NOTE | 2025-03-29 07:33 | A.OFFVIS_ITS ---
Vital Signs 03/29/25 07:39 Height 5 ft 4 in Weight 185 lb BMI 31.8 BP 138/88 Intake Visit Reasons: pre op/ IUD removal Child Support Case Officer Required: No Information Interpreted: non-clinical & clinical Addiction Treatment Counselor: Addiction Treatment Counselor Present (Mariah Pinto SAMANTHA) Accompanied by: Self / Same As Patient Allergies oxycodone (From PERCOCET) Allergy (Unknown, Verified 03/29/25 07:40) HIVES SWELLING Is last menstrual period known: Yes Last menstrual period: 03/16/20 Post menopausal: No Patient : No Do you need a note to return to daycare/school/sports/work: Yes (for surgery on friday) HPI Comments Details: Presenting for Mirena IUD removal and to discuss NovaSure endometrial ablation complaining of vaginal odor over the last 2 days no vulvovaginal itching PFSH Medical History Sterilization ASCUS of cervix with negative high risk HPV HTN (hypertension) Surgical History Hx of foot surgery Hx of section Family History Mother HTN (hypertension) Diabetes Maternal Aunt Leukemia Maternal Grandmother Colon cancer Maternal Uncle Leukemia Social History Household Members: Children Household Members Other:: mom Housing: House Alcohol intake: never Patient Tobacco Use Status: Former Tobacco user Years Smoked: 16 service: No Current occupational status: employed 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[employer] Sexual orientation: Straight/Heterosexual Gender identity: Female Female Reproductive History Menstrual Age of Menarche: 12 Date of last menstrual period: 03/16/20 Total pregnancies: 2 Full term: 2 Review of Systems Const All systems reviewed & are unremarkable except as noted in HPI and below Card Reports as per HPI and Reports no additional complaints Resp Reports as per HPI and Reports no additional complaints GI Reports as per HPI and Reports no additional complaints Reports as per HPI Physical Exam Const General: cooperative, healthy appearing and comfortable Resp Effort & Inspection: normal respiratory effort Auscultation: clear to auscultation bilaterally Percussion: percussion normal Cardio Palpation: normal PMI Rate: regular rate Rhythm: regular rhythm Heart sounds: no murmurs and no rubs Peripheral pulses: Peripheral pulses 2+ throughout GI Inspection: Yes normal to inspection Palpation (GI): Soft to palpation, nontender, no guarding, not rigid and No hepatosplenomegaly present Percussion: Yes normal to percussion Auscultation: normal bowel sounds Rectal Exam - Female: deferred General: Yes no CVA tenderness External Female Exam: normal external appearance and normal appearance of the urethra Speculum Exam - Vagina: normal appearance of the vagina, normal palpation, no lesions and no masses Speculum Exam - Cervix: normal appearance of the cervix, normal palpation, no lesions, no masses, nontender and Other cervical findings present (IUD string in place) Bimanual exam- vagina & uterus: normal bimanual exam, normal palpation, uterine size normal, normal palpation, uterine shape normal, No Cervical tenderness present and non-tender Bimanual Exam- Adnexa, other: normal adnexae Back/Spine/Pelvis Back: no CVA tenderness Assessment & Plan Assessment & Plan (1) Bacterial vaginosis: Code(s): N76.0 - Acute vaginitis; B96.89 - Other specified bacterial agents as the cause of diseases classified elsewhere Category: Medical Plan: GC and chlamydia cultures with BV panel taken. Will treat with Flagyl 500 mg p.o. b.i.d. x 7 days. Will reschedule IUD removal and preop with endometrial ablation for at least a week for a BV to be treated and decrease the risk of postop endometritis. Instructions given to the patient to refrain from sexual activity or to use condoms consistently and correctly during the BV treatment regimen, not to douch, it might increase the risk for relapse, and to call if symptoms persist or recur. Medications: New metronidazole 500 mg PO BID 14 tabs 0RF 7 days Coding Level of Care Code Est Pt Level 3 (32556) Diagnoses Bacterial vaginosis N76.0; B96.89
[2025-03-29 07:39] VITALS: BP 138/88; BMI 31.8
== END 2025-03-29 10:00 | disposition home or self-care (01) ==
LOC: HO.HWS 07:26
PROVIDERS: PCP Internal Medicine; Visit Provider Obstetrics & Gynecology
DX: N76.0 Acute vaginitis (principal); B96.89 Other specified bacterial agents as the cause of diseases classified elsewhere
CPT/HCPCS: 99213

== ENCOUNTER 2025-04-07 15:42 | Outpatient (AMB) | payer OTHER, SELFPAY ==
--- NOTE | 2025-04-07 15:53 | MHC.OFFVIS ---
Vital Signs 04/07/25 15:55 Height 5 ft 4 in Weight 185 lb BMI 31.8 BP 142/92 H Intake Visit Reasons: pre op/ IUD removal Shade Cutter Required: No Information Interpreted: non-clinical & clinical Recycling Or Rubbish Collector: Recycling Or Rubbish Collector Present (Mariah SINGH) Accompanied by: Self / Same As Patient Allergies oxycodone (From PERCOCET) Allergy (Unknown, Verified 04/07/25 15:57) HIVES SWELLING Is last menstrual period known: No (mirena) Post menopausal: No Patient : No Do you need a note to return to daycare/school/sports/work: Yes (for surgery on friday) HPI Comments Details: The patient is presenting for preop visit for Novasure Endometrial Ablation and Mirena IUD removal. The work up done included endometrial biospy, TSH, HCG and GC/CT all were negative. The patient is not interested in future conception and understands that while Endometrial Ablation is not a method of contraception it willl lower her chance of conception. 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 Gender identity: Female Female Reproductive History Menstrual Age of Menarche: 12 Date of last menstrual period: 03/16/20 Total pregnancies: 2 Full term: 2 Review of Systems Card Reports as per HPI and Reports no additional complaints Resp Reports as per HPI and Reports no additional complaints GI Reports as per HPI and Reports no additional complaints Reports as per HPI Physical Exam Const General: cooperative, healthy appearing and comfortable Resp Effort & Inspection: normal respiratory effort Auscultation: clear to auscultation bilaterally Percussion: percussion normal Cardio Palpation: normal PMI Rate: regular rate Rhythm: regular rhythm Heart sounds: no murmurs and no rubs Peripheral pulses: Peripheral pulses 2+ throughout GI Inspection: Yes normal to inspection Palpation (GI): Soft to palpation, nontender, no guarding, not rigid and No hepatosplenomegaly present Percussion: Yes normal to percussion Auscultation: normal bowel sounds Rectal Exam - Female: deferred Office Procedures IUD Insert/Removal Details Details: Counseling/Consent: After discussing with the patient the risks of the procedure including bleeding, infection, scar tissue formation, , possible injury to blood vessels or nerves, chronic arm pain, blood transfusion, and irregular unpredictable bleeding Alternative options were discussed with the patient including but not limited: Do nothing. The patient signed the consent and agreed with the plan; all questions answered. Urine test was done in the office and was negative Preop dx: Requesting IUD removal Op: IUD removal Post op dx: same EBL= 10 cc Procedure: The patient was put in the dorsal lithotomy position a speculum was inserted in the vagina the IUD thread identified. Using a Caterina clamp the thread was grasped and the IUD pulled out with no complications. The patient tolerated the procedure well and was advised to use a different method for contraception. Discharge instructions: Instructions were given to the pt to call if temp>100.4, abdominal pain heavy vaginal bleeding, n/v occur. The patient verbalized understanding and all questions answered. This note was generated with a voice recognition program. Some errors may have been overlooked during the review of this note. Sometimes these errors may affect the content or meaning of a given sentence. 41917-RPG Removal Procedure code (CPT) selection complete Results AMB Test Urine AMB Test Urine Negative Last Edit by Mariah Pinto CMA on 04/07/25 16:04 Assessment & Plan Assessment & Plan (1) Abnormal uterine bleeding (AUB): Code(s): N93.9 - Abnormal uterine and vaginal bleeding, unspecified Category: Medical Plan: Discussed with the patient the results of the work up done and options of treatment including Lysteda, BCP's, Mirena IUD, endometrial ablation and hysterectomy. All pros, cons, risks and benefits if each option was d/w pt and pt decided to go ahead with endometrial ablation. so a more detailed discussion about the procedure was conducted including mechanism of action, risks (inability to complete or perform the procedure, failure to control abnormal uterine bleeding necessitating additional/other treatment, the procedure might cause inability of diagnosing any future endometrial pathology including hyperplasia or cancer because of lack of access to endometrial cavity secondary to uterine adhesions from the endometrial ablation, uterine perforation, infection, injury to bladder, bowel, possible laparoscopy, and /or hysterectomy , possible need for blood transfusion with all its risks, and others) benefits ( hypomenorrhea, amenorrhea, ...) Pt is not interested in future conception and undertands that while Endometrial Ablation is not a method of contraception it will lower her chance of conception. Pt verbalized understanding and signed the consent. Instructions given the patient to stay NPO after midnight, take amlodipine losartan with small sip of water the morning of the procedure and no other additional medication and to schedule a follow-up appointment in 2-4 weeks for postoperative visitpreop (2) Encounter for IUD removal: Code(s): Z30.432 - Encounter for removal of intrauterine contraceptive device Category: Medical Plan: Mirena IUD removed, see procedure Orders: Orders AMB HCG Urine Test Today Z32.02 - Encounter for test, result negative Coding Level of Care Code Est Pt Level 3 (72939) Procedure Only Diagnoses Abnormal uterine bleeding (AUB) N93.9 Encounter for IUD removal Z30.432 CPT Codes Details - CPT: 65810-GTF Removal ([id number])
[2025-04-07 15:55] VITALS: BP 142/92; BMI 31.8
== END 2025-04-07 16:21 | disposition home or self-care (01) ==
LOC: HO.HWS 15:43
PROVIDERS: PCP Internal Medicine; Visit Provider Obstetrics & Gynecology
DX: N93.9 Abnormal uterine and vaginal bleeding, unspecified (principal); Z30.432 Encounter for removal of intrauterine contraceptive device; Z32.02 Encounter for pregnancy test, result negative
CPT/HCPCS: 58301

== ENCOUNTER → 2025-04-07 15:42 | Outpatient (BNVA) | payer OTHER, SELFPAY | PROVIDERS: PCP Internal Medicine; Visit Provider Obstetrics & Gynecology | DX: Z01.818 Encounter for other preprocedural examination (principal); N93.9 Abnormal uterine and vaginal bleeding, unspecified; Z30.432 Encounter for removal of intrauterine contraceptive device; Z32.02 Encounter for pregnancy test, result negative | CPT/HCPCS: 58301; 81025 ==

== ENCOUNTER 2025-04-08 12:19 | Day surgery (SDC) | payer OTHER, SELFPAY ==
--- NOTE | 2025-03-28 11:20 | HO.ANESPROP2 ---
Documented by User: Heidy Elise NP 03/28/25 11:20 HPI - Anesthesia Eval Consult details Narrative: 40 yr old female for Uterine Ablation w/Novasure PMFSH Active Problems Active Problems: All Active Problems Rib pain (Acute) Back pain (Acute) RUQ pain (Acute) Gallstones (Acute) Nephrolithiasis (Acute) ASCUS with positive high risk HPV cervical (Acute) Vulvovaginitis (Acute) Well woman exam (Acute) Remove/insert IUD (Acute) Hypertension (Acute) Malpositioned IUD (Acute) IUD check up (Acute) Myoma (Acute) Encounter for IUD removal and reinsertion (Acute) Abnormal uterine bleeding (AUB) (Acute) Potential exposure to STD (Acute) Cervical cancer screening (Acute) Well woman exam with routine gynecological exam (Acute) Attempted IUD removal, unsuccessful (Acute) IUD strings lost (Acute) Problematic vaginal discharge (Acute) Evaluation regarding contraception options (Acute) IUD (intrauterine device) in place (Acute) History of menorrhagia (Acute) Past Medical History Medical History Sterilization ASCUS of cervix with negative high risk HPV HTN (hypertension) Family History Family History Mother HTN (hypertension) Diabetes Maternal Aunt Leukemia Maternal Grandmother Colon cancer Maternal Uncle Leukemia Surgical History Surgical History Hx of foot surgery Hx of section Social History Social History Household Members: Children Household Members Other:: mom Housing: House Alcohol intake: never Patient Tobacco Use Status: Former Tobacco user Years Smoked: 16 Have you been hit, kicked, punched, or otherwise hurt by someone within the past year? 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 Gender identity: Female Meds Allergies Allergy/AdvReac Type Severity Reaction Status Date / Time oxycodone (From PERCOCET) Allergy Unknown HIVES Verified 04/07/25 15:57 SWELLING Home Medications ?Medication ?Instructions ?Recorded ?Confirmed ?Last Taken ?Type amlodipine 10 mg tablet 10 mg PO DAILY PRN stomach pain 07/23/22 03/29/25 04/07/25 History losartan 50 mg tablet 50 mg PO DAILY 07/23/22 03/29/25 04/07/25 History sertraline 25 mg tablet 25 mg PO DAILY 10/22/24 03/29/25 04/07/25 History Documented by User: Aric Raygoza MD 04/08/25 13:53 [facility] Past Medical History Medical History Sterilization ASCUS of cervix with negative high risk HPV HTN (hypertension) Family History Family History Mother HTN (hypertension) Diabetes Maternal Aunt Leukemia Maternal Grandmother Colon cancer Maternal Uncle Leukemia Family history of problems with anesthesia: No Surgical History Surgical History Hx of foot surgery Hx of section History of Problems with Anesthesia: No Social History Social History Household Members: Children Household Members Other:: mom Housing: House Alcohol intake: never Patient Tobacco Use Status: Former Tobacco user Years Smoked: 16 Have you been hit, kicked, punched, or otherwise hurt by someone within the past year? 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 Gender identity: Female Meds Allergies Allergy/AdvReac Type Severity Reaction Status Date / Time oxycodone (From PERCOCET) Allergy Unknown HIVES Verified 04/07/25 15:57 SWELLING Home Medications ?Medication ?Instructions ?Recorded ?Confirmed ?Last Taken ?Type amlodipine 10 mg tablet 10 mg PO DAILY PRN stomach pain 07/23/22 03/29/25 04/07/25 History losartan 50 mg tablet 50 mg PO DAILY 07/23/22 03/29/25 04/07/25 History sertraline 25 mg tablet 25 mg PO DAILY 10/22/24 03/29/25 04/07/25 History Exam Exam Date and Time: 04/08/25 Airway Mallampati Class: II TM Dist: >3cm Neck ROM: Full Heart: rrr Lungs: ctab vesicular Assessment and Plan Assessment Anesthesia Assessment: Anesthesia Plan Discussed and Chart Reviewed Final Anesthetic Review Family History of Problems with Anesthesia: No History of Problems with Anesthesia: No NPO: Yes ASA Class: II Final Preanesthetic Review: No Changes in Pt Med Stat, Meds/Allgs Chart Reviewed, Consent Obtained/Reviewed and Anes Risks/Benef Reviewed Patient Risk: Low Procedure Risk: Low Anesthetic Plan Anesthetic Plan: GA Disposition: Standard PACU
[2025-03-29 08:23] VITALS: BMI 31.8
[2025-04-08] VITALS (11 sets, daily range): BP systolic 99–163; BP diastolic 55–101; PULSE 79–98; RESP 16; TEMP 36.1–36.9; O2SAT 94–100; BMI 31.8
--- NOTE | 2025-04-08 12:54 | MHC.SHP ---
Pre-Procedural Eval Section A - 24 Hr Update-Section A only Date of Service: 04/08/25 The patient is an INPATIENT: No Changes since office visit: No Cold of Flu in the past 2 weeks, No New Medical Problems, No Changes in Medication and No Patient answered all questions The patient has been examined within 24 hours of the surgical procedure. The History & Physical has been completed within 30 days and I have reviewed it.: Yes Section B - Complete if H&P > 30 days Chief Complaint: Abnormal uterine and vaginal bleeding, unspecified Allergies: Allergies Allergy/AdvReac Type Severity Reaction Status Date / Time oxycodone (From PERCOCET) Allergy Unknown HIVES Verified 04/07/25 15:57 SWELLING Plan Diagnosis/Plan: Unchanged I have reviewed the history and physical and performed a pertinent physical examination on my patient. No changes have occurred unless specified. Time Spent With Patient Time: Total time managing care of this patient today ____ minutes.
[2025-04-08] MEDS: Lactated Ringers 1,000 ML 100 ML IVCONT (13:03)
[2025-04-08 13:12] LABS: UPreg QC Valid YES
--- NOTE | 2025-04-08 14:20 | PM.OP ---
Brief Operative Note Date of Service: 04/08/25 Pre-op diagnosis: Abnormal uterine bleeding Post-op diagnosis: same Procedure: NovaSure endometrial ablation Surgeon: Errol Darby MD Anesthesia: GLMA Was an Creative Services Director used for this Procedure?: No Estimated blood loss (mL): 0 Pathology: none sent Condition: stable Disposition: PACU
--- NOTE | 2025-04-08 14:22 | P.OP_ITS ---
Operative Note Operative Note Date of Service: 04/08/25 Narrative: Preop diagnosis: Abnormal uterine bleeding Post Op Diagnosis: Same Op: Novasure Endometrial Ablation Anesthesia: GLMA State Historical Society Director: None QBL: Minimal Pathology: None Complications: None Procedure: The patient was put in the dorsal lithotomy position. She was prepped and draped in the usual sterile manner. Bimanual exam prior to prepping revealed a mobile, anteverted uterus. A speculum was placed in the vagina and the anterior lip of the cervix was grasped with a single toothed tenaculum and brought forward. Taking care not to enter deep into the uterus, a sound was passed inside to measure the length of the uterus and cervix. This length was found to be 8 cm. Next, Hegar dilator was inserted into the cervical os to measure the cervical length which was 3 cm. This yielded an endometrial cavity length of 6.5 cm. A series of Hegar dilators were then inserted sequentially into the cervical os up to a size of 5 mm. The Novasure device was then opened and tested; the fan deployed easily. The instrument was set to the correct cavity length and introduced into the uterine cavity. The fan was slowly deployed with gentle movements to ensure a snug fit within the cavity. The cavity width read 4.5 cm. The measurements were imported and a cavity check was done. The trumpet was then slid down to the cervix and the device was activated. The total burn time was 91 seconds. The fan was retracted and device removed. The fan was examined and revealed charred tissue. The tenaculum was removed and the cervix examined for hemostasis which was achieved using pressure. Finally the speculum was removed. The patient tolerated the procedure well and was brought to the recovery room in a stable condition. At the end of the procedure all sponges and instruments were counted and correct. The blood loss was minimal and there were no complications.
== END 2025-04-08 16:11 | disposition home or self-care (01) ==
PROVIDERS: PCP Internal Medicine; Visit Provider Obstetrics & Gynecology
PROC: (CPT 58353; principal; 2025-04-08 15:00)
DX: N93.9 Abnormal uterine and vaginal bleeding, unspecified (principal); I10 Essential (primary) hypertension; Z88.5 Allergy status to narcotic agent; Z98.890 Other specified postprocedural states; Z87.891 Personal history of nicotine dependence
CPT/HCPCS: 58353; 81025; J0131; J1100; J1885; J2003; J2250; J2405; J2704; J3010

== ENCOUNTER → 2025-04-08 12:19 | Outpatient (BNV) | payer OTHER, SELFPAY | PROVIDERS: PCP Internal Medicine; Visit Provider Obstetrics & Gynecology | DX: N93.9 Abnormal uterine and vaginal bleeding, unspecified (principal) | CPT/HCPCS: 58563 ==

== ENCOUNTER 2025-04-26 14:49 | Outpatient (AMB) | payer OTHER, SELFPAY ==
--- NOTE | 2025-04-26 15:08 | MHC.OFFVIS ---
Vital Signs 04/26/25 15:11 Height 5 ft 3 in Weight 183 lb BMI 32.4 BP 142/90 H Intake Visit Reasons: post op Allergies oxycodone (From PERCOCET) Allergy (Unknown, Verified 04/07/25 15:57) HIVES SWELLING HPI Comments Details: The patient is presenting post Novasure Endometrial Ablation. No complaints minimal vaginal bleeding no feverishness chills or abdominal pain. 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 In addition, discussed with the patient the expectations in the post operative period. Instruction given to patient to wait 2- 3 months and call if her menses are not satisfactory. Also discussed with the patient that although NovaSure endometrial ablation decreases the risk of , it is certainly not a method of control. All questions answered, the patient verbalized understanding and all questions answered . Coding Level of Care Code Est Pt Level 3 (83522) Diagnoses Abnormal uterine bleeding (AUB) N93.9
[2025-04-26 15:11] VITALS: BP 142/90; BMI 32.4
== END 2025-04-26 15:17 | disposition home or self-care (01) ==
LOC: HO.HWS 14:50
PROVIDERS: PCP Internal Medicine; Visit Provider Obstetrics & Gynecology
DX: N93.9 Abnormal uterine and vaginal bleeding, unspecified (principal)
CPT/HCPCS: 99213

== ENCOUNTER → 2025-04-26 14:49 | Outpatient (BNVA) | payer OTHER, SELFPAY | PROVIDERS: PCP Internal Medicine; Visit Provider Obstetrics & Gynecology | DX: Z48.816 Encounter for surgical aftercare following surgery on the genitourinary system (principal); N93.9 Abnormal uterine and vaginal bleeding, unspecified | CPT/HCPCS: 99212 ==